=== PATIENT | female | born 1950 | race Caucasian/White ===

== ENCOUNTER 2021-09-02 21:08 | Emergency (ER) | payer MEDICAID, SELFPAY ==
[2021-09-02 21:18] VITALS: BP 131/93; PULSE 114; RESP 18; TEMP 37.1; O2SAT 97; BMI 24.7
--- NOTE | 2021-09-02 21:22 | XRR_ITS ---
PROCEDURE INFORMATION: Exam: XR Chest Exam date and time: 09/02/2021 9:28 PM Age: 70 years old Clinical indication: Other: Syncope; Additional info: Syncopal episode TECHNIQUE: Imaging protocol: Radiologic exam of the chest. Views: 1 view. COMPARISON: No relevant prior studies available. FINDINGS: Lungs: Minor scarring at the peripheral left lung base. No consolidation. Pleural spaces: No pleural effusion. No pneumothorax. Heart/Mediastinum: No cardiomegaly. Bones/joints: Visualized osseous structures are intact. XR/XR chest 1V portable [id number] IMPRESSION: No acute findings.
--- NOTE | 2021-09-02 21:22 | CTR_ITS ---
PROCEDURE INFORMATION: Exam: CT Head Without Contrast Exam date and time: 09/02/2021 9:51 PM Age: 70 years old Clinical indication: Syncope and collapse; Patient HX: Syncopal episode this evening. C/O bilateral leg weakness. TECHNIQUE: Imaging protocol: Computed tomography of the head without contrast. Radiation optimization: All CT scans at this facility use at least one of these dose optimization techniques: automated exposure control; mA and/or kV adjustment per patient size (includes targeted exams where dose is matched to clinical indication); or iterative reconstruction. COMPARISON: No relevant prior studies available. RADIATION DOSE METRICS: Total DLP (mGy-cm): 1351.38 FINDINGS: Brain: No hemorrhage. Mild diffuse cerebral atrophy. Moderate periventricular and deep white matter lesions most suggestive of chronic small vessel ischemic disease. Old punctate lacunar infarcts in the left caudate head. No mass effect. Cerebral ventricles: No ventriculomegaly. Paranasal sinuses: Visualized sinuses are unremarkable. No fluid levels. Mastoid air cells: Visualized mastoid air cells are well aerated. Bones/joints: Unremarkable. No acute fracture. Soft tissues: Unremarkable. CT/CT head wo con* [id number] IMPRESSION: 1. No acute intracranial abnormality. 2. Mild diffuse cerebral atrophy and moderate periventricular/deep white matter disease most suggestive of chronic small vessel ischemic disease. Old lacunar infarcts noted in the left caudate head.
--- NOTE | 2021-09-02 21:24 | ECG_ITS ---
[facility] Test Date: 2021-09-02 Pat Name: Leelee Maynard Department: Room: Gender: Female Desktop Support Associate: : 1950 Requested By: Case Shell Order Number: [id number] Acevedo MD: Kaylene Wetzel M.D. Measurements Intervals [place] Rate: 112 P: 22 [place]: 169 QRS: 9 QRSD: 94 T: 24 QT: 336 QTc: 459 Interpretive Statements SINUS TACHYCARDIA INFERIOR MYOCARDIAL INFARCTION , PROBABLY OLD [40+ ms Q WAVE AND/OR ST/T ABNORMALITY IN II/aVF] No previous ECG available for comparison Electronically Signed On 09-02-2021 22:50:30 CDT by Kaylene Wetzel M.D. [id number]
--- NOTE | 2021-09-02 21:46 | ED_ITS ---
Documented by User: MARY Martinez 09/03/21 15:51 HPI - Syncope General: Chief Complaint: Syncope Stated Complaint: SYNCOPAL EPISODE Time Seen by Provider: 09/02/21 21:22 History of Present Illness: Patient is a 70-year-old female comes to the ED with syncopal episode. Patient has a history of hypertension and diabetes but stopped taking her previously prescribed antihypertensive med and metformin several months ago since she stopped going to [facility]. Episode occurred just prior to arrival. Patient was sitting at her kitchen table watching some YouTube videos and then woke up on the floor. She states that she had no preceding symptoms before syncopal episode and has been feeling fine and normal all day. She has no history of past syncopal episodes. She was down for unknown time. Her is present and he was the one who found her on the floor. They estimate patient could have been out for 5 to 15 minutes. found on the kitchen floor and she was unconscious. He states that it took her almost a good hour before she fully came to and was acting more normal. He denies seeing any seizure-like activity or movements while patient was down on the ground. Here in the ED patient says her only complaint bilateral achy leg pain. Denies headache, neck pain, chest pain, shortness of breath, abdominal pain, nausea/vomiting, bladder or bowel symptoms. Associated symptoms: Deny abdominal pain, chest pain, fever(s), headache(s) or nausea Review of Systems Const: Denies: fever(s), chills or fatigue Eyes: Denies: change in vision or eye discomfort ENMT: Denies: throat pain, odynophagia, nasal discharge or nasal congestion Card: Reports: syncope; Denies: chest pain, palpitations, edema, swelling of feet/ankles, dyspnea on exertion or orthopnea Resp: Denies: dyspnea, productive cough or non-productive cough GI: Denies: abdominal pain, nausea, vomiting, diarrhea, constipation or hematochezia : Denies: flank pain, dysuria or hematuria Musc: Denies: neck pain, back pain or extremity swelling Skin/Breast: Denies: rash or new lesions Neuro: Denies: headache(s), numbness in extremities or weakness in extremities PFS ED PFSH: Medical History Diabetes Hypertension Surgical History No pertinent past surgical history Physical Exam Const: COMMON NORMALS: patient oriented x3 and alert GENERAL APPEARANCE: cooperative and comfortable HENMT: COMMON NORMALS: normocephalic HEAD & SCALP: normocephalic MOUTH: Normal oral and palatal mucosa present THROAT: posterior oropharynx normal and uvula midline Eye: COMMON NORMALS: Equal, round and reactive pupils present, EOMs intact bilaterally and conjunctivae normal CONJUNCTIVA: Yes conjunctivae normal PUPIL: Yes Equal, round and reactive pupils present Neck/C-Spine: COMMON NORMALS: supple GENERAL: Yes normal visual inspection Resp: COMMON NORMALS: normal respiratory effort, No retractions, No use of accessory muscles and clear to auscultation bilaterally AUSCULTATION: clear to auscultation bilaterally Cardio: COMMON NORMALS: regular rate, regular rhythm, S1 normal heart sound present, S2 normal heart sound present, No gallops present (Cardio), No clicks present (Cardio), No murmurs present (Cardio) and Peripheral pulses 2+ throughout RATE: regular rate RHYTHM: regular rhythm HEART SOUNDS: S1 normal heart sound present and S2 normal heart sound present PERIPHERAL PULSES: Peripheral pulses 2+ throughout GI: COMMON NORMALS: Normal to inspection, nondistended, normoactive bowel sounds present, Soft to palpation, non-tender and no masses PALPATION: Yes Soft to palpation : COMMON NORMALS: Yes no CVA tenderness BLADDER/KIDNEY EXAM: Yes no CVA tenderness Back/Pelvis: COMMON NORMALS: no CVA tenderness Extremity: COMMON NORMALS: normal to inspection Neuro: COMMON NORMALS: patient oriented x3, CN's II-XII intact bilaterally, moves all extremities, no focal motor deficits and no sensory deficits noted SENSORIUM/ORIENTATION: Yes alert COORDINATION/BALANCE: [id number] test normal and urhw-by-kpmj test normal SPEECH: speech normal MOTOR EXAM: 5/5 motor strength present throughout COORDINATION: [id number]-qj-airf test normal and vmff-rv-pzwy test normal Skin: GENERAL SKIN EXAM: dry skin Course Vital Signs: Vital signs: Vital Signs Temperature 98.8 F 09/02/21 22:03 Pulse Rate 94 09/03/21 00:05 Respiratory Rate 18 09/02/21 22:03 Blood Pressure 143/81 09/03/21 00:05 Pulse Oximetry 97 09/02/21 22:03 MDM - Syncope Lab Data I reviewed the patient's lab results. : 09/02/21 21:50 09/02/21 21:50 Radiology Impressions Chest X-Ray 09/02/21 21:22 IMPRESSION: No acute findings. Head CT 09/02/21 21:22 IMPRESSION: 1. No acute intracranial abnormality. 2. Mild diffuse cerebral atrophy and moderate periventricular/deep white matter disease most suggestive of chronic small vessel ischemic disease. Old lacunar infarcts noted in the left caudate head. Laboratory Results WBC 14.0 10^3/uL (4.0-10.0) H 09/02/21 21:50 RBC 4.70 10^6/uL (4.1-5.3) 09/02/21 21:50 Hgb 14.5 g/dL (11.5-15.3) 09/02/21 21:50 Hct 40.2 % (37.0-47.0) 09/02/21 21:50 MCV 85.5 fl (81-99) 09/02/21 21:50 MCH 30.9 pg (28.0-34.0) 09/02/21 21:50 MCHC 36.1 g/dL (30.0-36.0) H 09/02/21 21:50 RDW 12.6 % (12.1-15.1) 09/02/21 21:50 Plt Count 282 10^3/cmm (130-400) 09/02/21 21:50 MPV 9.3 fL (7.4-10.4) 09/02/21 21:50 Neut % (Auto) 84.0 % 09/02/21 21:50 Lymph % (Auto) 9.4 % 09/02/21 21:50 [place] % (Auto) 5.6 % 09/02/21 21:50 Eos % (Auto) 0.1 % 09/02/21 21:50 Baso % (Auto) 0.4 % 09/02/21 21:50 Neut # (Auto) 11.79 10^3/uL (1.8-7.7) H 09/02/21 21:50 Lymph # (Auto) 1.3 10^3/uL (0.8-4.8) 09/02/21 21:50 [place] # (Auto) 0.8 10^3/uL (0.2-0.9) 09/02/21 21:50 Eos # (Auto) 0.0 10^3/uL (0.0-0.8) 09/02/21 21:50 Baso # (Auto) 0.1 10^3/uL (0.0-0.1) 09/02/21 21:50 Nucleated RBC % (auto) 0 % 09/02/21 21:50 Nucleated RBCs # 0.0 /100WBC 09/02/21 21:50 Sodium 127 mmol/L (136-145) L 09/02/21 21:50 Potassium 3.8 mmol/L (3.5-5.1) 09/02/21 21:50 Chloride 92 mmol/L (98-107) L 09/02/21 21:50 Carbon Dioxide 18 mmol/L (22-29) L 09/02/21 21:50 Anion Gap 20.8 (5-19) H 09/02/21 21:50 BUN 9 mg/dL (8-23) 09/02/21 21:50 Creatinine 0.6 mg/dL (0.5-0.9) 09/02/21 21:50 GFR Calculation 99.4 mL/min (90-130) 09/02/21 21:50 Glucose 208 mg/dL (65-115) H 09/02/21 21:50 Calculated Osmolality 269 mOsm/kg (285-295) L 09/02/21 21:50 Calcium 8.6 mg/dL (8.5-10.5) 09/02/21 21:50 Total Bilirubin 0.5 mg/dL (0.15-1.2) 09/02/21 21:50 AST 30 U/L (0-32) 09/02/21 21:50 ALT 27 U/L (0-33) 09/02/21 21:50 Alkaline Phosphatase 87 IU/L (35-105) 09/02/21 21:50 Troponin T Baseline 24 ng/L (0-10) H 09/02/21 21:50 Troponin T 120 Minute 28.87 ng/L (0-10) H 09/03/21 00:05 Delta Troponin T 4.87 ABS# (0-10) 09/03/21 00:05 Troponin T Hi Sens 6Hr 22.99 ng/L (0-10) H 09/03/21 05:05 Troponin T Hi Sens 6Hr Delta -1.01 ng/L (0-12) L 09/03/21 05:05 Total Protein 8.0 g/dL (6.6-8.7) 09/02/21 21:50 Albumin 4.2 g/dL (3.5-5.2) 09/02/21 21:50 Globulin 3.8 g/dL (1.3-4.6) 09/02/21 21:50 Urine Color Yellow (Yellow) 09/02/21 22:04 Urine Appearance Clear (CLEAR) 09/02/21 22:04 Urine pH 6 (5-7) 09/02/21 22:04 Ur Specific [place] 1.020 (1.005-1.030) 09/02/21 22:04 Urine Protein Neg (Negative) 09/02/21 22:04 Urine Glucose (UA) Trace (Normal) H 09/02/21 22:04 Urine Ketones Negative (Negative) 09/02/21 22:04 Urine Blood Neg (Negative) 09/02/21 22:04 Urine Nitrate Negative (Negative) 09/02/21 22:04 Urine Bilirubin Neg (Negative) 09/02/21 22:04 Urine Urobilinogen Norm mg/dL (Negative) 09/02/21 22:04 Ur Leukocyte Esterase Negative (Negative) 09/02/21 22:04 Discharge Plan Discharge Patient Disposition: Home Clinical Impression: Syncope Condition: Stable Discharge Orders: Discharge ED (Routine); Ordered 09/03/21 Ordered By: Asa Nascimento Discharge Diet: Advance as tolerated Discharge Activity: Limit activity as instructed Activity Restrictions/Additional Instructions: Contact your doctor on Sunday to let them know that you were seen here after an episode of syncope or passing out. They may wish to perform more tests on you as an outpatient. Return for repeated episodes of syncope or passing out, development of chest discomfort, confusion, shortness of breath, other concerning symptoms. Coding Level of Care Code ED Fund Accounting Manager for Chg Fwd Exam Comprehensive Documented by User: Asa Nascimento DO 09/03/21 05:46 HPI - Syncope General: Chief Complaint: Syncope Stated Complaint: SYNCOPAL EPISODE Time Seen by Provider: 09/02/21 21:22 [facility] ED PFSH: Medical History Diabetes Hypertension Surgical History No pertinent past surgical history Course Vital Signs: Vital signs: Vital Signs Temperature 98.8 F 09/02/21 22:03 Pulse Rate 94 09/03/21 00:05 Respiratory Rate 18 09/02/21 22:03 Blood Pressure 143/81 09/03/21 00:05 Pulse Oximetry 97 09/02/21 22:03 MDM - Syncope Medical Decision Making This patient was originally seen by Mr. Suleman PA-C.? I agree with his history, evaluation, and treatment. This patient had an unexplained syncopal episode at home. Her rhythm has been stable on the monitor here. Her white blood cell count is mildly elevated at 14. Her bicarbonate level is 18. She received some fluid here. Her EKGs show sinus rhythm with no acute ST changes. First troponin was 22, and did not change significantly at 2 or 6 hours. Chest x-ray reveals nothing acute. There is no acute change on head CT either. With her stable status over essentially 8.5 hours in the ER, lack of arrhythmia, benign labs she will be allowed home. Lab Data : 09/02/21 21:50 09/02/21 21:50 Radiology Impressions Chest X-Ray 09/02/21 21:22 IMPRESSION: No acute findings. Head CT 09/02/21 21:22 IMPRESSION: 1. No acute intracranial abnormality. 2. Mild diffuse cerebral atrophy and moderate periventricular/deep white matter disease most suggestive of chronic small vessel ischemic disease. Old lacunar infarcts noted in the left caudate head. Laboratory Results WBC 14.0 10^3/uL (4.0-10.0) H 09/02/21 21:50 RBC 4.70 10^6/uL (4.1-5.3) 09/02/21 21:50 Hgb 14.5 g/dL (11.5-15.3) 09/02/21 21:50 Hct 40.2 % (37.0-47.0) 09/02/21 21:50 MCV 85.5 fl (81-99) 09/02/21 21:50 MCH 30.9 pg (28.0-34.0) 09/02/21 21:50 MCHC 36.1 g/dL (30.0-36.0) H 09/02/21 21:50 RDW 12.6 % (12.1-15.1) 09/02/21 21:50 Plt Count 282 10^3/cmm (130-400) 09/02/21 21:50 MPV 9.3 fL (7.4-10.4) 09/02/21 21:50 Neut % (Auto) 84.0 % 09/02/21 21:50 Lymph % (Auto) 9.4 % 09/02/21 21:50 Pickett % (Auto) 5.6 % 09/02/21 21:50 Eos % (Auto) 0.1 % 09/02/21 21:50 Baso % (Auto) 0.4 % 09/02/21 21:50 Neut # (Auto) 11.79 10^3/uL (1.8-7.7) H 09/02/21 21:50 Lymph # (Auto) 1.3 10^3/uL (0.8-4.8) 09/02/21 21:50 [place] # (Auto) 0.8 10^3/uL (0.2-0.9) 09/02/21 21:50 Eos # (Auto) 0.0 10^3/uL (0.0-0.8) 09/02/21 21:50 Baso # (Auto) 0.1 10^3/uL (0.0-0.1) 09/02/21 21:50 Nucleated RBC % (auto) 0 % 09/02/21 21:50 Nucleated RBCs # 0.0 /100WBC 09/02/21 21:50 Sodium 127 mmol/L (136-145) L 09/02/21 21:50 Potassium 3.8 mmol/L (3.5-5.1) 09/02/21 21:50 Chloride 92 mmol/L (98-107) L 09/02/21 21:50 Carbon Dioxide 18 mmol/L (22-29) L 09/02/21 21:50 Anion Gap 20.8 (5-19) H 09/02/21 21:50 BUN 9 mg/dL (8-23) 09/02/21 21:50 Creatinine 0.6 mg/dL (0.5-0.9) 09/02/21 21:50 GFR Calculation 99.4 mL/min (90-130) 09/02/21 21:50 Glucose 208 mg/dL (65-115) H 09/02/21 21:50 Calculated Osmolality 269 mOsm/kg (285-295) L 09/02/21 21:50 Calcium 8.6 mg/dL (8.5-10.5) 09/02/21 21:50 Total Bilirubin 0.5 mg/dL (0.15-1.2) 09/02/21 21:50 AST 30 U/L (0-32) 09/02/21 21:50 ALT 27 U/L (0-33) 09/02/21 21:50 Alkaline Phosphatase 87 IU/L (35-105) 09/02/21 21:50 Troponin T Baseline 24 ng/L (0-10) H 09/02/21 21:50 Troponin T 120 Minute 28.87 ng/L (0-10) H 09/03/21 00:05 Delta Troponin T 4.87 ABS# (0-10) 09/03/21 00:05 Troponin T Hi Sens 6Hr 22.99 ng/L (0-10) H 09/03/21 05:05 Troponin T Hi Sens 6Hr Delta -1.01 ng/L (0-12) L 09/03/21 05:05 Total Protein 8.0 g/dL (6.6-8.7) 09/02/21 21:50 Albumin 4.2 g/dL (3.5-5.2) 09/02/21 21:50 Globulin 3.8 g/dL (1.3-4.6) 09/02/21 21:50 Urine Color Yellow (Yellow) 09/02/21 22:04 Urine Appearance Clear (CLEAR) 09/02/21 22:04 Urine pH 6 (5-7) 09/02/21 22:04 Ur Specific [place] 1.020 (1.005-1.030) 09/02/21 22:04 Urine Protein Neg (Negative) 09/02/21 22:04 Urine Glucose (UA) Trace (Normal) H 09/02/21 22:04 Urine Ketones Negative (Negative) 09/02/21 22:04 Urine Blood Neg (Negative) 09/02/21 22:04 Urine Nitrate Negative (Negative) 09/02/21 22:04 Urine Bilirubin Neg (Negative) 09/02/21 22:04 Urine Urobilinogen Norm mg/dL (Negative) 09/02/21 22:04 Ur Leukocyte Esterase Negative (Negative) 09/02/21 22:04 Discharge Plan Discharge Patient Disposition: Home Clinical Impression: Syncope Condition: Stable Discharge Orders: Discharge ED (Routine); Ordered 09/03/21 Ordered By: Asa Nascimento Discharge Diet: Advance as tolerated Discharge Activity: Limit activity as instructed Activity Restrictions/Additional Instructions: Contact your doctor on Sunday to let them know that you were seen here after an episode of syncope or passing out. They may wish to perform more tests on you as an outpatient. Return for repeated episodes of syncope or passing out, development of chest discomfort, confusion, shortness of breath, other concerning symptoms. Coding Level of Care Code ED Fund Accounting Manager for Yanelis Fwd Exam Comprehensive
[2021-09-02 21:57] LABS: Basophils # 0.1 10^3/uL (0.0-0.1); Basophils % 0.4 %; Eosinophils % 0.1 %; Hematocrit 40.2 % (37.0-47.0); Hemoglobin 14.5 g/dL (11.5-15.3); Lymphocytes # 1.3 10^3/uL (0.8-4.8); Lymphocytes % 9.4 %; Mean Corpuscular HGB Conc 36.1 g/dL (30.0-36.0); Mean Corpuscular Hemoglobin 30.9 pg (28.0-34.0); Mean Corpuscular Volume 85.5 fl (81-99); Mean Platelet Volume 9.3 fL (7.4-10.4); Monocytes # 0.8 10^3/uL (0.2-0.9); Monocytes % 5.6 %; Neutrophils # 11.79 10^3/uL (1.8-7.7); Nucleated Red Blood Cells % 0 %; Platelet Count 282 10^3/cmm (130-400); Red Cell Distribution Width 12.6 % (12.1-15.1)
[2021-09-02 22:03] VITALS: BP 131/93; PULSE 114; RESP 18; TEMP 37.1; O2SAT 97
[2021-09-02 22:12] LABS: Add Urine Microscopic? NO; Charge for UA Resulting for Rev
[2021-09-02 22:17] LABS: Albumin Level 4.2 g/dL (3.5-5.2); Alkaline Phosphatase 87 IU/L (35-105); Blood Urea Nitrogen 9 mg/dL (8-23); Calcium 8.6 mg/dL (8.5-10.5); Carbon Dioxide 18 mmol/L (22-29); Chloride 92 mmol/L (98-107); Globulin 3.8 g/dL (1.3-4.6); Glomerular Filtration Rate 99.4 mL/min (90-130); Glucose 208 mg/dL (65-115); Osmolality Calculated 269 mOsm/kg (285-295); Sodium 127 mmol/L (136-145); Total Bilirubin 0.5 mg/dL (0.15-1.2); Troponin(5th) Baseline 24 ng/L (0-10)
[2021-09-02 22:21] LABS: Alanine Aminotransferase 27 U/L (0-33); Anion Gap 20.8 (5-19); Aspartate Amino Transferase 30 U/L (0-32); Potassium 3.8 mmol/L (3.5-5.1)
[2021-09-02 22:23] LABS: Urine Appearance Clear (CLEAR); Urine Color Yellow (Yellow)
[2021-09-02 22:24] LABS: Bilirubin Urine Neg (Negative); Blood Urine Neg (Negative); Glucose Urine UA Trace (Normal); Ketones Urine Negative (Negative); Leukocyte Esterase Urine Negative (Negative); Nitrate Urine Negative (Negative); Protein Urine Neg (Negative); Urobilinogen Urine Norm (Negative); pH Urine 6 (5-7)
[2021-09-02 22:27] LABS: Slide Review Slide Review Perform
[2021-09-02] MEDS: sodium chloride 0.9% 500 ML 999 ML IV (23:16)
--- NOTE | 2021-09-02 23:24 | ECG_ITS ---
[facility] Test Date: 2021-09-02 Pat Name: Leelee Maynard Department: Room: Gender: Female Nuclear Cardiology Technologist: : 1950 Requested By: Case Shell Order Number: [id number] Acevedo MD: Marck Hussein M.D. Measurements Intervals [place] Rate: 96 P: 37 [place]: 178 QRS: 8 QRSD: 94 T: 45 QT: 365 QTc: 463 Interpretive Statements SINUS RHYTHM MINIMAL ST DEPRESSION [0.025+ mV ST DEPRESSION] Compared to ECG 09/02/2021 21:56:18 ST (T wave) deviation now present Sinus tachycardia no longer present Myocardial infarct finding no longer present Electronically Signed On 09-04-2021 13:29:51 CDT by Marck Hussein M.D. [id number]
[2021-09-03 00:05] VITALS: BP 132/88; BP 134/94; BP 143/81; PULSE 107; PULSE 94; PULSE 99
[2021-09-03 00:28] LABS: Troponin 5 2HR 28.87 ng/L (0-10)
[2021-09-03 00:29] LABS: Troponin 5 2HR Delta 4.87 ABS# (0-10)
[2021-09-03 05:36] LABS: Troponin 5 6HR 22.99 ng/L (0-10)
[2021-09-03 05:39] LABS: Troponin 5 6HR Delta -1.01 ng/L (0-12)
== END 2021-09-03 06:37 | disposition home or self-care (01) ==
PROVIDERS: Physician Assistant; Emergency Provider Emergency Medicine
DX: R55 Syncope and collapse (principal); E11.9 Type 2 diabetes mellitus without complications; I10 Essential (primary) hypertension
CPT/HCPCS: 36415; 70450; 71045; 80053; 81003; 84484; 85025; 93005; 96360; 99284; J7040

== ENCOUNTER → 2021-09-07 17:17 | Outpatient (BNVA) | payer MEDICAID, SELFPAY | PROVIDERS: PCP Nurse Practitioner Family; Visit Provider Nurse Practitioner Family | DX: I25.10 Atherosclerotic heart disease of native coronary artery without angina pectoris (principal); I10 Essential (primary) hypertension; E11.9 Type 2 diabetes mellitus without complications; R55 Syncope and collapse; G45.9 Transient cerebral ischemic attack, unspecified; F41.9 Anxiety disorder, unspecified; F32.A Depression, unspecified | CPT/HCPCS: 80053; 80061; 83036; 83090; 84443 ==

== ENCOUNTER 2021-12-21 12:25 | Outpatient (CLI) | payer MEDICAID, SELFPAY ==
--- NOTE | 2021-12-21 12:45 | USCV_ITS ---
Karen Maynard Age: 71 Gender: F : 1950 Exam Date: 12/21/2021 12:52 Ordering Phys: Pretty Lynne NP Technologist: EKATERINA [place] [facility] [place]: Syncope. Hx of CAD and TIA Risk Factors: Previous Vascular Surgery: Right Brachial BP: / Left Brachial BP: / Right Left Velocity (cm/s) Spectral Plaque Velocity (cm/s) Spectral Plaque Syst/Diast Broadening Syst/Diast Broadening 59.80/ 15.50 Prox CCA 59.20 / 13.90 67.60/ 18.60 Mid CCA 57.90 / 13.20 76.10/ 19.40 Distal CCA 80.80 / 21.80 66.00/ 18.60 Prox ICA 70.70 / 19.40 87.00/ 31.10 Mid ICA 76.90 / 25.60 71.40/ 28.00 Distal ICA 100.00/ 35.00 69.10 ECA 89.30 1.14 ICA/CCA 1.24 Vertebral 44.00/ 8.50 cm/s 35.20/ 15.00 cm/s Subclavian 56.80 100.0 0 FINDINGS Comparison: none available. No significant elevation of systolic or diastolic velocities. Waveforms are normal. No significant amount of calcified plaque or intimal thickening identified. CONCLUSIONS Normal carotid doppler ultrasound. Dr. Thi Morrissey DO (Electronically Signed) Final Date: 21 December 2021 14:02 S
--- NOTE | 2021-12-21 13:30 | USCV_ITS ---
Karen Maynard Age: 71 Gender: F : 1950 Exam Date: 12/21/2021 13:24 Ordering Phys: Pretty Lynne NP Technologist: LYNN [place] [facility] [place]: SYNCOPE/TIA BP: 126 / 74 HR: 74 Rhythm: Sinus Technical Quality: Adequate MEASUREMENTS (Male / Female) Normal Values 2D ECHO LVOT Diameter 2.0 cm LV Ejection Fraction MOD 2C 60.3 % LV Ejection Fraction 2C AL 59.7 % LA Diameter 3.3 cm LA Width 3.5 cm LA Height 4.7 cm RA Width 3.4 cm RA Height 4.2 cm Aorta at Sinotubular Diameter 1.7 cm IVC Diameter 1.8 cm M-MODE Aortic Annulus Diameter 3.0 cm LA Ao Ratio MM 1.1 MV E Point Septal Separation 0.4 cm DOPPLER AV Peak Velocity 197.0 cm/s LVOT Peak Velocity 96.0 cm/s AV Area Cont Eq vti 1.7 cm squared AV Area Cont Eq pk 1.6 cm squared MV Peak Velocity 104.0 cm/s MV Area PHT 3.5 cm squared Mitral E to A Ratio 0.8 MV E' Velocity 43.0 cm/s Mitral E to MV E' Ratio 11.1 Mitral E to LV E' Lateral Ratio 9.8 Mitral E to LV E' Septal Ratio 12.9 TR Peak Velocity 190.5 cm/s TR Peak Gradient 14.5 mmHg TR Mean Velocity 166.9 cm/s TR Mean Gradient 12.0 mmHg TR Velocity Time Integral 70.2 cm TV Peak E Velocity 54.0 cm/s Right Atrial Pressure 3.0 mmHg Pulmonary Artery Systolic Pressu 17.5 mmHg PV Peak Velocity 115.0 cm/s RV Acceleration Time 0.1 s RV Ejection Time 0.3 s RV AcT/ET 0.3 FINDINGS Left Ventricle Normal left ventricular cavity size. Normal left ventricular systolic function. Left ventricular ejection fraction is estimated at 65 %. No regional wall motion abnormalities. Normal diastolic function. Right Ventricle Normal right ventricular size and systolic function. Right ventricular systolic pressure 17.5 mmHg. Right Atrium Normal right atrial size. Left Atrium Normal left atrial size. Mitral Valve Mild mitral annular calcification. Mildly thickened mitral valve. No mitral valve stenosis. Trace mitral valve regurgitation. Aortic Valve Aortic valve not well visualized. No aortic valve stenosis. Trace aortic valve regurgitation. Tricuspid Valve Structurally normal tricuspid valve. No tricuspid valve stenosis. Trace tricuspid valve regurgitation. Pulmonic Valve Pulmonic valve not well visualized. No pulmonary valve stenosis. No significant pulmonary valve regurgitation. Pericardium No pericardial effusion. Aorta Normal-sized aortic root. IVC Normal IVC dimension with >50% respiratory change of the inferior vena cava. CONCLUSIONS 1. Normal left ventricular cavity size and systolic function. Left ventricular ejection fraction is estimated at 65 %. No regional wall motion abnormalities. Normal diastolic function. 2. Normal right ventricular size and systolic function. 3. Trace aortic valve regurgitation. 4. Normal pulmonary artery pressure. 5. No prior similar studies to compare. Kaylene Wetzel MD (Electronically Signed) Final Date: 26 December 2021 09:16 S
== END 2021-12-21 12:26 | disposition home or self-care (01) ==
LOC: RAD 12:26
PROVIDERS: PCP Nurse Practitioner Family; Visit Provider Nurse Practitioner Family
DX: R55 Syncope and collapse (principal); E11.9 Type 2 diabetes mellitus without complications; I10 Essential (primary) hypertension; Z86.73 Personal history of transient ischemic attack (TIA), and cerebral infarction without residual deficits
CPT/HCPCS: 93306; 93880

== ENCOUNTER → 2021-12-23 13:03 | Outpatient (BNVA) | payer MEDICAID, SELFPAY | PROVIDERS: PCP Nurse Practitioner Family; Visit Provider Nurse Practitioner Family | DX: I10 Essential (primary) hypertension (principal); E11.9 Type 2 diabetes mellitus without complications; E78.1 Pure hyperglyceridemia; F32.A Depression, unspecified; F41.9 Anxiety disorder, unspecified; M19.90 Unspecified osteoarthritis, unspecified site; Z78.0 Asymptomatic menopausal state; Z12.31 Encounter for screening mammogram for malignant neoplasm of breast; Z13.820 Encounter for screening for osteoporosis; Z12.11 Encounter for screening for malignant neoplasm of colon; Z12.2 Encounter for screening for malignant neoplasm of respiratory organs; F17.200 Nicotine dependence, unspecified, uncomplicated | CPT/HCPCS: 80053; 80061; 82306; 83036; 85025 ==

== ENCOUNTER 2022-02-06 12:10 | Outpatient (CLI) | payer MEDICAID, SELFPAY ==
--- NOTE | 2022-02-06 12:56 | MM_ITS ---
WS: [id number] BILATERAL 3D TOMOSYNTHESIS DIGITAL SCREENING MAMMOGRAPHY WITH CAD CLINICAL INFORMATION: screening HISTORY: Screening mammogram. No current complaints. COMPARISON: None. TECHNIQUE: Bilateral CC and MLO views. FINDINGS: Scattered fibroglandular densities bilaterally. No suspicious focal mass, asymmetry, calcifications, or architectural distortion. No evidence of malignancy. Incidental lucent centered calcification LEFT breast. MM/[place] [id number] IMPRESSION: BI-RADS: 2-Benign FOLLOW UP: 1 Year Follow-up Recommend return to annual screening mammography.
--- NOTE | 2022-02-06 13:00 | XR_ITS ---
WS: [id number] SCREENING DEXA SCAN Sensorion CLINICAL INFORMATION: screening COMPARISON: None. FINDINGS: The L1-L4 bone mineral density measures 1.099 g/cm2. This corresponds to a T score score of -0.7 and Z score of 0.9. Left femoral neck bone mineral density measures 0.683 g/cm2. This corresponds to a T score of -2.6 an d Z score of -1.2. Right femoral neck bone mineral density measures 0.673 g/cm2. This corresponds to a T score -2.7of an d Z score of -1.3. Mean femoral neck bone mineral density measures 0.678 g/cm2. This corresponds to a T score of -2.6 an d Z score of -1.2. XR/XR DEXA axial skeleton* [id number] IMPRESSION: Normal bone mineralization lumbar spine. Osteoporosis Femoral necks. Patient's FRAX calculated 10 year probability for major osteoporotic fracture i s 18.0 % and osteoporotic hip fracture is 7.4%.
--- NOTE | 2022-02-06 14:30 | CT_ITS ---
WS: [email or web address] LDCT LUNG CANCER SCREENING TECHNIQUE: Noncontrast CT of the chest with coronal and sagittal reformatted images. CLINICAL INFORMATION: screening COMPARISON: None. DLP: 66.22 mGy.cm DIvol: Mean CTDIvol: 1.60 (mGy) All CT scans at [facility] use at least one of these dose optimization techniques: automat ed exposure control; mA and/or kV adjustment per patient size (includes targeted exams where dose is matched to clinical indication); or iterative reconstruction. FINDINGS: Aortic calcification. Coronary calcification. No mediastinal or hilar lymphadenopathy. Adrenal glands are normal. Normal GE junction. No mediastinal or hilar lymphadenopathy. No axillary lymphadenopathy . Subsegmental atelectasis in lung bases. Noncalcified pulmonary nodule LEFT upper lobe near the lung apex measuring 6.7 mm. Additional noncalcified nodule LEFT upper lobe measuring 3.5 mm. Calcified gra nuloma LEFT lower lobe. CT/CT lung screening [id number] IMPRESSION: Noncalcified nodule LEFT lung apex measuring 6.7 mm. Recommend 3 mo nth follow-up chest CT screening. LUNG-RADS: 4A-Probably Suspicious FOLLOW UP: 3 Month LDCT
== END 2022-02-06 12:11 | disposition home or self-care (01) ==
LOC: RAD 12:12
PROVIDERS: PCP Nurse Practitioner Family; Visit Provider Nurse Practitioner Family
DX: Z12.31 Encounter for screening mammogram for malignant neoplasm of breast (principal); Z13.820 Encounter for screening for osteoporosis; Z12.2 Encounter for screening for malignant neoplasm of respiratory organs; M81.0 Age-related osteoporosis without current pathological fracture
CPT/HCPCS: 71271; 77063; 77067; 77080

== ENCOUNTER → 2022-03-30 09:11 | Outpatient (BNVA) | payer MEDICAID, SELFPAY | PROVIDERS: PCP Nurse Practitioner Family; Visit Provider Nurse Practitioner Family | DX: E78.1 Pure hyperglyceridemia (principal); E11.9 Type 2 diabetes mellitus without complications; F32.A Depression, unspecified; F41.9 Anxiety disorder, unspecified; I10 Essential (primary) hypertension | CPT/HCPCS: 80053; 80061; 83036; 85025 ==

== ENCOUNTER 2022-05-10 06:04 | Outpatient (CLI) | payer MEDICARE, MEDICAID, SELFPAY ==
--- NOTE | 2022-05-10 06:30 | CT_ITS ---
WS: [id number] CT CHEST WITHOUT INTRAVENOUS CONTRAST HISTORY: 3 month follow-up lung screening 02/06/2022. TECHNIQUE: Contiguous 5 mm axial imaging performed on the thorax. Coronal and sagittal reformats are submitted. All CT scans at [facility] use at least one of these dose optimization techniques: automated exposure control; mA and/or kV adjustment per patient size (includes targeted exams where dose is matched to clinical indication); or iterative reconstruction. CONTRAST: None DLP: 347.54 mGy.cm COMPARISON: 01/29/2022 Lungs and central airway: Well aerated lungs with mild emphysema. Stable noncalcified 6 mm LEFT upper lobe pulmonary nodule. Noncalcified 3 mm nodule LEFT upper lobe is stable, image 19 of series 5. No new or enlarging pulmonary nodules. Pleura: Normal. No pleural effusion. Heart and pericardium: Mild cardiomegaly with no pericardial effusion. Mediastinum and gopi: No mediastinum or hilar adenopathy. Vessels: Moderate atherosclerosis aorta. Moderate calcification extends into the proximal great vesse ls. Heavy calcification at the origin of the LEFT subclavian artery. Moderate coronary artery calcifi cations. Greatest distribution of calcification in the LEFT anterior descending coronary. Chest wall and lower neck: No soft tissue masses. Upper abdomen: Dense calcification in the gallbladder. There may also be some sludge layering in a mi ldly contracted gallbladder. No adrenal mass. Moderate suprarenal aortic calcification. Osseous structures: Degenerative spondylitic changes in the spine. CT/CT chest wo con [id number] IMPRESSION: 1. No interval change 6 mm LEFT upper lobe pulmonary nodule since 01/29/2022. Recommend noncontrast [address] follow-up. 2. Atherosclerosis thoracic aorta and suprarenal aorta. 3. Heavy calcific burden involving the origin of the LEFT subclavian artery. S uspect component of stenosis. CT angiogram the LEFT subclavian artery may provi de additional information concerning extent of stenosis. 4. Cholelithiasis and sludge in the gallbladder. No evidence for acute cholecy stitis. Consider surgical evaluation. 5. Moderate coronary artery atherosclerosis.
== END 2022-05-10 06:05 | disposition home or self-care (01) ==
LOC: RAD 06:07
PROVIDERS: PCP Nurse Practitioner Family; Visit Provider Nurse Practitioner Family
DX: R91.1 Solitary pulmonary nodule (principal); K80.20 Calculus of gallbladder without cholecystitis without obstruction
CPT/HCPCS: 71250

== ENCOUNTER → 2022-05-15 13:20 | Outpatient (BNVA) | payer MEDICARE, MEDICAID, SELFPAY | PROVIDERS: PCP Nurse Practitioner Family; Visit Provider Internal Medicine Pulmonary Disease | DX: R91.1 Solitary pulmonary nodule (principal); J43.9 Emphysema, unspecified; F17.210 Nicotine dependence, cigarettes, uncomplicated; F41.9 Anxiety disorder, unspecified | CPT/HCPCS: 99204 ==

== ENCOUNTER 2022-06-13 09:08 | Outpatient (CLI) | payer MEDICARE, MEDICAID, SELFPAY ==
[2022-06-13 09:17] VITALS: BP 127/82
[2022-06-13 09:34] VITALS: PULSE 84; RESP 18; O2SAT 97
[2022-06-13] MEDS: albuterol 2.5 mg/3 mL Neb INHALATION (09:34)
[2022-06-13 09:40] VITALS: PULSE 88
== END 2022-06-13 09:09 | disposition home or self-care (01) ==
LOC: RT 09:12
PROVIDERS: PCP Nurse Practitioner Family; Visit Provider Internal Medicine Pulmonary Disease
DX: R91.1 Solitary pulmonary nodule (principal); F17.200 Nicotine dependence, unspecified, uncomplicated
CPT/HCPCS: 94060; 94618; 94729; J7613

== ENCOUNTER → 2022-07-25 08:21 | Outpatient (BNVA) | payer MEDICARE, MEDICAID, SELFPAY | PROVIDERS: PCP Nurse Practitioner Family; Visit Provider Nurse Practitioner Family | DX: E11.9 Type 2 diabetes mellitus without complications (principal); Z00.00 Encounter for general adult medical examination without abnormal findings; F32.A Depression, unspecified; F41.9 Anxiety disorder, unspecified | CPT/HCPCS: 80053; 80061; 83036; 84443 ==

== ENCOUNTER 2022-10-06 01:40 | Inpatient (IN) | payer MEDICARE, MEDICAID, SELFPAY ==
[2022-10-06] VITALS (43 sets, daily range): BP systolic 94–125; BP diastolic 40–79; PULSE 62–108; RESP 13–24; TEMP 36.2; O2SAT 90–99; BMI 25.8; BMI 22.4
--- NOTE | 2022-10-06 01:42 | ED_ITS ---
HPI - Syncope General: Chief Complaint: Neuro Symptoms/Deficit Stated Complaint: syncope Time Seen by Provider: 10/06/22 01:42 History of Present Illness: Ms. Hagan is a 71-year-old lady with history of hypertension, diabetes, prior stroke presented the emergency department for evaluation of strokelike symptoms. Patient reports that her right arm has been weaker over the past few days and today she fell to the ground and lost consciousness. She currently only reports neurologic symptom of right arm weakness. Denies other recent changes. Family confirms history of few days of noticing increased right upper extremity weakness. Apparently she went to get up to get a glass of water before going to bed and collapsed to the ground. She did not appear to lose consciousness however was unable to answer questions. No clear seizure like shaking though did feel like her arms were drawn up towards her wraps. No tongue biting or loss of consciousness. She has been feeling generally unwell for at least a few days. Onset (ago): day(s) Associated symptoms: Reports weakness Review of Systems General: Reports: 10 or more systems reviewed and unremarkable except in HPI and below PFSH ED PFSH: Medical History (Updated 10/13/22 @ 10:04 by Pretty Lynne NP) Advanced care planning/counseling discussion Anxiety Breast cancer screening by mammogram CAD in [place] artery Chronic UTI Colon cancer screening Current every day smoker Depression Diabetes Diarrhea Encounter for smoking cessation counseling Enteritis Hypertension Hypokalemia Hypomagnesemia Hyponatremia Hypophosphatemia OA (osteoarthritis) Osteoporosis screening Postmenopausal Pulmonary nodule 1 cm or greater in diameter Screening for lung cancer Stroke-like symptom Syncope Surgical History H/O: hysterectomy Family History Family/Other No significant medical problems Social History Smoking and tobacco status: current every day smoker cigarettes Packs smoked per day: 1 Years cigarettes smoked: 50 [ Other cigarette details: 1 ppd x 50 years] Physical Exam Const: COMMON NORMALS: alert GENERAL APPEARANCE: cooperative and well developed HENMT: COMMON NORMALS: normocephalic and atraumatic HEAD & SCALP: normocephalic and atraumatic Eye: COMMON NORMALS: conjunctivae normal CONJUNCTIVA: Yes conjunctivae normal SCLERA: sclerae normal Neck/C-Spine: COMMON NORMALS: supple GENERAL: Yes trachea midline Resp: COMMON NORMALS: clear to auscultation bilaterally EFFORT & IN SPECTION: Yes able to speak in complete sentences AUSCULTATION: clear to auscultation bilaterally Cardio: COMMON NORMALS: regular rhythm RATE: tachycardic RHYTHM: regular rhythm GI: COMMON NORMALS: Soft to palpation PALPATION: Yes Soft to palpation and No Tenderness to palpation present (GI) Extremity: GENERAL: Yes normal exam except as noted and No edema Neuro: COMMON NORMALS: moves all extremities SENSORIUM/ORIENTATION: Yes alert and No Orientation impaired Psych: COMMON NORMALS: mental status grossly normal and Normal thought process present THOUGHT PROCESS: Normal thought process present Course Vital Signs: Vital signs: Vital Signs Temperature 97.4 F L 10/08/22 12:39 Pulse Rate 76 10/08/22 12:39 Respiratory Rate 16 10/08/22 12:39 Blood Pressure 136/71 10/08/22 12:39 Pulse Oximetry 99 10/08/22 12:39 Oxygen Delivery Me thod Room Air 10/08/22 08:49 MDM - Syncope Medical Decision Making 71-year-old lady presenting with strokelike symptoms. Right upper extremity weakness appreciated on clinical exam. Due to onset of symptoms and low NIHSS patient is not a tPA candidate. Patient is nontoxic. EKG demonstrates sinus rhythm with left axis deviation and nonspecific ST seg ment abnormalities, no STEMI. Labs with no leukocytosis, present anemia, metabolic panel with hypokalemia and likely dehydration. CT head negative for acute pathology. Chest x-ray with no lobar consolidation or pneumothorax. Patient treated with magnesium and potassium replenishment as well as fluids. Exact etiology of symptoms is unclear though may be related to recrudescence secondary to electrolyte derangement. The results of ED evaluation were discussed with the patient including plan for admission due to requirement for level of care not available if discharged to prevent significant worsening/deterioration. Patient agreeable with plan. Discussed with hospitalist service who was agreeable to admit patient. Medical Records I reviewed the patient's medical records. Lab Data I reviewed the patient's lab results. 10/08/22 02:27 10/08/22 02:27 Radiology Impressions Chest X-Ray 10/06/22 01:42 IMPRESSION: No acute abnormality demonstrated. Head CT 10/06/22 01:44 IMPRESSION: Diffuse atrophy and chronic/remote ischemic changes without evidence of superimposed acute infarct, hemorrhage or mass-effect at this time. ASSESSMENT: ASPECTS ([place] Stroke Program Early CT Score) is 10. Chest/Abdomen/Pelvis CT 10/06/22 04:29 IMPRESSION: 1. Mild upper lung zone emphysema and minimal bibasilar atelectasis. 2. Stable left upper lobe apicoposterior segment 6.7 mm noncalcified pulmonary nodule and 3.5 mm anterior left upper lobe noncalcified nodule. Recommend follow-up noncontrast chest CT at 18-24 months from the initial scan 02/06/2022, in keeping with Fleischner recommendations. 3. Atherosclerotic vascular disease including coronary artery disease. IMPRESSION: 1. Diffuse ileus versus enterocolitis or diarrheal illness. 2. Cholelithiasis. 3. Previous hysterectomy. 4. Atherosclerotic vascular disease. Laboratory Results WBC 8.7 10^3/uL (4.0-10.0) 10/06/22 01:54 RBC 3.74 10^6/uL (4.1-5.3) L 10/06/22 01:54 Hgb 10.7 g/dL (11.5-15.3) L 10/06/22 01:54 Hct 30.2 % (37.0-47.0) L 10/06/22 01:54 MCV 80.7 fl (81-99) L 10/06/22 01:54 MCH 28.6 pg (28.0-34.0) 10/06/22 01:54 MCHC 35.4 g/dL (30.0-36.0) 10/06/22 01:54 RDW 15.8 % (12.1-15.1) H 10/06/22 01:54 Plt Count 198 10^3/cmm (130-400) 10/06/22 01:54 MPV 8.3 fL (7.4-10.4) 10/06/22 01:54 Neut % (Auto) 90.4 % 10/06/22 01:54 Lymph % (Auto) 4.0 % 10/06/22 01:54 Orange % (Auto) 4.8 % 10/06/22 01:54 Eos % (Auto) 0.0 % 10/06/22 01:54 Baso % (Auto) 0.1 % 10/06/22 01:54 Neut # (Auto) 7.89 10^3/uL (1.8-7.7) H 10/06/22 01:54 Lymph # (Auto) 0.4 10^3/uL (0.8-4.8) L 10/06/22 01:54 Orange # (Auto) 0.4 10^3/uL (0.2-0.9) 10/06/22 01:54 Eos # (Auto) 0.0 10^3/uL (0.0-0.8) 10/06/22 01:54 Baso # (Auto) 0.0 10^3/uL (0.0-0.1) 10/06/22 01:54 Nucleated RBC % (auto) 0 % 10/06/22 01:54 Nucleated RBCs # 0.0 /100WBC 10/06/22 01:54 PT 16.70 SECONDS (12.1-14.9) H 10/06/22 01:54 INR 1.31 (0.8-1.2) H 10/06/22 01:54 APTT 33.3 SECONDS (23.9-36.7) 10/06/22 01:54 Sodium 120 mmol/L (136-145) L 10/06/22 04:20 Potassium 2.5 mmol/L (3.5-5.1) L* 10/06/22 04:20 Chloride 88 mmol/L (98-107) L 10/06/22 04:20 Carbon Dioxide 17 mmol/L (22-29) L 10/06/22 04:20 Anion Gap 17.5 (5-19) 10/06/22 04:20 BUN 8 mg/dL (8-23) 10/06/22 04:20 Creatinine 0.4 mg/dL (0.5-0.9) L 10/06/22 04:20 GFR Calculation 158.3 mL/min (90-130) H 10/06/22 04:20 Glucose 169 mg/dL (65-115) H 10/06/22 04:20 Estimat Average Glucose 126 10/06/22 01:54 Hemoglobin A1c 6.0 % (4.0-6.0) 10/06/22 01:54 Calculated Osmolality 251 mOsm/kg (285-295) L 10/06/22 01:54 Lactic Acid 1.0 mmol/L (0.5-2.2) 10/06/22 01:54 Calcium 7.8 mg/dL (8.5-10.5) L 10/06/22 04:20 Phosphorus 1.8 mg/dL (2.5-4.5) L 10/06/22 04:20 Magnesium 1.5 mg/dL (1.7-2.3) L 10/06/22 01:54 Total Bilirubin 0.4 mg/dL (0.15-1.2) 10/06/22 01:54 AST 34 U/L (0-32) H 10/06/22 01:54 ALT 15 U/L (0-33) 10/06/22 01:54 Alkaline Phosphatase 51 U/L (35-105) 10/06/22 01:54 Troponin T Baseline 36 ng/L (0-10) H 10/06/22 01:54 Troponin T 120 Minute 27.21 ng/L (0-10) H 10/06/22 04:20 Delta Troponin T -8.79 ABS# (0-10) L 10/06/22 04:20 C-Reactive Protein 140.7 mg/L (0.0-4.9) H 10/06/22 01:54 NT-Pro-B Natriuret Pep 1539 pg/mL (0-125) H 10/06/22 01:54 Total Protein 5.2 g/dL (6.6-8.7) L 10/06/22 01:54 Albumin 2.9 g/dL (3.5-5.2) L 10/06/22 04:20 Globulin 2.2 g/dL (1.3-4.6) 10/06/22 01:54 Procalcitonin 17.93 ng/mL (0-0.5) H 10/06/22 01:54 Urine Color Yellow (Yellow) 10/06/22 04:06 Urine Appearance Sl hazy (CLEAR) A 10/06/22 04:06 Urine pH 6 (5-7) 10/06/22 04:06 Ur Specific [place] 1.020 (1.005-1.030) 10/06/22 04:06 Urine Protein Trace (Negative) 10/06/22 04:06 Urine Glucose (UA) Norm (Normal) 10/06/22 04:06 Urine Ketones 2+ (Negative) H 10/06/22 04:06 Urine Blood Trace (Negative) H 10/06/22 04:06 Urine Nitrate Negative (Negative) 10/06/22 04:06 Urine Bilirubin Neg (Negative) 10/06/22 04:06 Urine Urobilinogen Neg mg/dL (Negative) 10/06/22 04:06 Ur Leukocyte Esterase Negative (Negative) 10/06/22 04:06 Urine RBC 0-4 /hpf (0-2) H 10/06/22 04:06 Urine WBC None /hpf (0-5) 10/06/22 04:06 Ur Squamous Epith Cells 5-10 /hpf (0-5) H 10/06/22 04:06 Amorphous Sediment Not Reportable 10/06/22 04:06 Urine Bacteria 1+ /hpf (NONE) H 10/06/22 04:06 Urine Opiates Screen Negative ng/mL (Negative) 10/06/22 04:06 Ur Barbiturates Screen Negative ng/mL (Negative) 10/06/22 04:06 Ur Phencyclidine Scrn Negative ng/mL (Negative) 10/06/22 04:06 Ur Amphetamines Screen Negative ng/mL (Negative) 10/06/22 04:06 U Benzodiazepines Scrn Negative ng/mL (Negative) 10/06/22 04:06 Urine Cocaine Screen Negative ng/mL (Negative) 10/06/22 04:06 U Marijuana (THC) Screen Negative ng/mL (Negative) 10/06/22 04:06 Discharge Plan Discharge Patient Disposition: Admitted As Inpatient Admit Provider: Case Lynne Clinical Impression: Stroke-like symptom, Syncope, Hyponatremia, Hypokalemia, Hypomagnesemia Condition: Stable Coding Level of Care Code ED [employer] for Yanelis Rutledge
--- NOTE | 2022-10-06 01:42 | XRR_ITS ---
PROCEDURE INFORMATION: Exam: XR Chest Exam date and time: 10/06/2022 2:02 AM Age: 71 years old Clinical indication: Other: Syncope, RT sided weakness TECHNIQUE: Imaging protocol: Radiologic exam of the chest. Views: 1 view. COMPARISON: CT chest con [id number] 05/10/2022 6:32 AM FINDINGS: Tubes, catheters and devices: A couple monitor leads project over the chest. Lungs: No significant or acute findings. No consolidation. Pleural spaces: No significant costophrenic angle blunting. No pneumothorax. Heart/Mediastinum: Heart size is normal. Bones/joints: No acute osseous abnormality. XR/XR chest 1V portable [id number] IMPRESSION: No acute abnormality demonstrated.
--- NOTE | 2022-10-06 01:44 | CTR_ITS ---
PROCEDURE INFORMATION: Exam: CT Head Without Contrast Exam date and time: 10/06/2022 1:57 AM Age: 71 years old Clinical indication: Stroke-like symptoms; RT upper extremity weakness; Additional info: Syncope, possible stroke like symptoms TECHNIQUE: Imaging protocol: Computed tomography of the head without contrast. Radiation optimization: All CT scans at this facility use at least one of these dose optimization techniques: automated exposure control; mA and/or kV adjustment per patient size (includes targeted exams where dose is matched to clinical indication); or iterative reconstruction. Other technique: STROKE PROTOCOL was implemented. REPORTING DATA: Count of CT and Cardiac NM exams in prior 12 months: This patient has received 2 known CTs and 0 known cardiac nuclear medicine studies in the 12 months prior to the current study. COMPARISON: CT head wo con* [id number] 09/02/2021 9:51 PM RADIATION DOSE METRICS: Total DLP (mGy-cm): 1168.25 FINDINGS: Brain: Prominence of the sulci consistent with diffuse atrophy. No mass effect or midline shift. Periventricular and subcortical white matter low-attenuation consistent with chronic small vessel ischemic changes. Caudate head tiny remote lacunar infarcts left greater than right. No evidence of acute intracranial hemorrhage. Cerebral ventricles: Ventricular prominence proportional to sulci. No hydrocephalus. Paranasal sinuses: No significant or acute abnormality. No air-fluid levels. Mastoid air cells: No acute abnormality. No significant mastoid effusion. Bones/joints: No acute osseous abnormality. No acute fracture. Soft tissues: No significant soft tissue abnormalities. Vasculature: Atherosclerotic vascular calcification of the bilateral distal vertebral arteries and carotid siphons. CT/CT head wo con* [id number] IMPRESSION: Diffuse atrophy and chronic/remote ischemic changes without evidence of superimposed acute infarct, hemorrhage or mass-effect at this time. ASSESSMENT: ASPECTS ([place] Stroke Program Early CT Score) is 10.
--- NOTE | 2022-10-06 01:52 | ECG_ITS ---
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 Measurements Intervals [place] Rate: 101 P: 24 [place]: 184 QRS: -3 QRSD: 106 T: 11 QT: 358 QTc: 464 Interpretive Statements SINUS TACHYCARDIA INFERIOR MYOCARDIAL INFARCTION , PROBABLY OLD [40+ ms Q WAVE AND/OR ST/T ABNORMALITY IN II/aVF] Compared to ECG 09/02/2021 23:56:35 Myocardial infarct finding now present Sinus rhythm no longer present ST (T wave) deviation no longer present Electronically Signed On 10-06-2022 18:37:30 CDT by Isai Iniguez M.D. [id number]
[2022-10-06 02:02] LABS: Basophils % 0.1 %; Hematocrit 30.2 % (37.0-47.0); Hemoglobin 10.7 g/dL (11.5-15.3); Lymphocytes # 0.4 10^3/uL (0.8-4.8); Mean Corpuscular HGB Conc 35.4 g/dL (30.0-36.0); Mean Corpuscular Hemoglobin 28.6 pg (28.0-34.0); Mean Corpuscular Volume 80.7 fl (81-99); Mean Platelet Volume 8.3 fL (7.4-10.4); Monocytes # 0.4 10^3/uL (0.2-0.9); Monocytes % 4.8 %; Neutrophils # 7.89 10^3/uL (1.8-7.7); Neutrophils % 90.4 %; Nucleated Red Blood Cells % 0 %; Platelet Count 198 10^3/cmm (130-400); Red Blood Count 3.74 10^6/uL (4.1-5.3); Red Cell Distribution Width 15.8 % (12.1-15.1); White Blood Count 8.7 10^3/uL (4.0-10.0)
[2022-10-06 02:18] LABS: INR 1.31 (0.8-1.2)
[2022-10-06 02:19] LABS: Partial Thromboplastin Time 33.3 SECONDS (23.9-36.7)
[2022-10-06 02:23] LABS: Troponin(5th) Baseline 36 ng/L (0-10)
[2022-10-06 02:45] LABS: NT Pro B Type Natriuretic Pept 1539 pg/mL (0-125); Procalcitonin 17.93 ng/mL (0-0.5)
[2022-10-06 02:56] LABS: Alanine Aminotransferase 15 U/L (0-33); Alkaline Phosphatase 51 U/L (35-105); Anion Gap 17.7 (5-19); Aspartate Amino Transferase 34 U/L (0-32); Blood Urea Nitrogen 9 mg/dL (8-23); C Reactive Protein 140.7 mg/L (0.0-4.9); Calcium 7.4 mg/dL (8.5-10.5); Carbon Dioxide 17 mmol/L (22-29); Chloride 87 mmol/L (98-107); Creatinine Clr Calc Pharmacy 67.6947; Globulin 2.2 g/dL (1.3-4.6); Glomerular Filtration Rate 122.3 mL/min (90-130); Glucose 177 mg/dL (65-115); Magnesium 1.5 mg/dL (1.7-2.3); Osmolality Calculated 251 mOsm/kg (285-295); Total Bilirubin 0.4 mg/dL (0.15-1.2); Total Protein 5.2 g/dL (6.6-8.7)
[2022-10-06 03:13] LABS: Potassium 2.7 mmol/L (3.5-5.1); Sodium 119 mmol/L (136-145)
--- NOTE | 2022-10-06 03:39 | PM.HP ---
Providers/Chief Complaint Admitting Physician: Case Lynne MD Primary Care Provider: Pretty Lynne NP Chief Complaint: syncope History of Present Illness Karen Maynard is a 71 year old female with a past medical history significant for emphysema, lung nodule, panic attacks, tobacco use disorder, depression, anxiety, transient ischemic attack, coronary artery disease, hypertension, diabetes mellitus, and chronic urinary tract infections who presents to the emergency department with right upper extremity weakness times several days. This was followed by patient collapsing prior to bedtime. Due to her presenting symptom, there was concern for stroke. Head CT revealed diffuse atrophy and chronic/remote ischemic changes without any evidence of acute findings. Patient was found to have multiple metabolic derangements including severe hyponatremia, severe hypokalemia, hypochloremia, nonanion gap metabolic acidosis, hypomagnesia, and markedly elevated inflammatory markers. Upon further questioning, patient endorsed diarrhea for the past several days. Also reports fevers. She is unsure how high her fever went but also reports being febrile while in the ambulance. Family is bedside. They report her oral intake has been very poor for the past several days. She endorses associated diffuse weakness. Denies any recent changes to diet. Denies any sick contacts. She has a history of chronic UTIs. A urinalysis is currently pending. Blood cultures were obtained. She denies any other alleviating or aggravating factors. Denies any new coughing, dysuria, or new headaches. Review of Systems Narrative: A complete review of systems was obtained and is negative except as stated in HPI. Medications/Allergies Home Medications Medication Instructions Recorded Confirmed Last Taken Type albuterol sulfate 90 mcg/actuation 1 inh inhalation QID PRN shortness 07/25/22 09/28/22 Unknown Rx aerosol inhaler (Ventolin HFA) of breath or wheezing #8.5 grams aspirin 81 mg tablet,delayed 81 mg PO .QHS 90 days #90 tabs 07/25/22 09/28/22 Unknown Rx release (Adult Low Dose Aspirin) azelastine 205.5 mcg (0.15 %) 2 spray intranasal BID #30 mL 07/25/22 09/28/22 Unknown Rx nasal spray (Astepro Allergy) buspirone 10 mg tablet 10 mg PO QID 30 days #120 tabs 07/25/22 09/28/22 Unknown Rx lisinopril 5 mg tablet 5 mg PO DAILY 30 days #30 tabs 07/25/22 09/28/22 Unknown Rx loratadine 10 mg tablet (Claritin) 10 mg PO DAILY 30 days #30 tabs 07/25/22 09/28/22 Unknown Rx meloxicam 15 mg tablet 15 mg PO DAILY 30 days #30 tabs 07/25/22 09/28/22 Unknown Rx raloxifene 60 mg tablet (Evista) 60 mg PO DAILY 30 days #30 tabs 07/25/22 09/28/22 Unknown Rx trazodone 100 mg tablet 100 mg PO .QHS 30 days #30 tabs 07/25/22 09/28/22 Unknown Rx tiotropium bromide 2.5 2 inh inhalation QAM #4 grams 08/11/22 09/28/22 Unknown Rx mcg/actuation mist for inhalation (Spiriva Respimat) zolpidem 5 mg tablet (Ambien) 5 mg PO .QHS 30 days #30 tabs 09/01/22 09/28/22 Unknown Rx sulfamethoxazole 800 1 tab PO BID 10 days #20 tabs 09/18/22 09/28/22 Unknown Rx mg-trimethoprim 160 mg tablet (Bactrim DS) nitrofurantoin 100 mg PO DAILY 30 days #30 caps 09/28/22 09/28/22 Unknown Rx monohydrate/macrocrystals 100 mg capsule (Macrobid) Allergies Allergy/AdvReac Type Severity Reaction Status Date / Time tetanus toxoid, adsorbed Allergy Unknown Verified 05/15/22 13:38 PFSH Acute PFSH: Medical History (Updated 10/06/22 @ 03:54 by Case Lynne MD) Advanced care planning/counseling discussion Anxiety Breast cancer screening by mammogram Colon cancer screening Depression Diabetes Encounter for smoking cessation counseling Hypertension Osteoporosis screening Postmenopausal Screening for lung cancer Syncope Surgical History H/O: hysterectomy Family History Family/Other No significant medical problems Social History Smoking and tobacco status: current every day smoker cigarettes Packs smoked per day: 1 Years cigarettes smoked: 50 [ Other cigarette details: 1 ppd x 50 years] Vitals/I&O/Wt Last Vital Signs Pulse 95 10/06/22 03:21 Resp 16 10/06/22 03:21 BP 104/65 10/06/22 03:21 Pulse Ox 96 10/06/22 03:21 O2 Del Method Room Air 10/06/22 01:42 Weight last 48 hrs Weight 72.575 kg Physical Exam Narrative: General: Patient is awake. Ill-appearing. Head: Normocephalic. Atraumatic. EOM intact. Dry mucous membranes. Neck: No JVD. Cardiovascular: No gallops. No murmurs. No peripheral edema. Lungs: Breath sounds are slightly coarse, no use of accessory muscles, no crackles or wheezes. Skin: No jaundice. No rashes. Abdomen: Normal bowel sounds, abdomen soft and nontender. Extremities: No cyanosis or clubbing. Musculoskeletal: Normal muscle development for demographic. Neurological: Moves all 4 extremities. No myoclonus. Cranial nerves are grossly intact. No slurred speech. No facial droop. Strength and sensation is grossly intact in all 4 extremities. Data 10/06/22 01:54 10/06/22 01:54 Micro: Microbiology 10/06/22 02:27 Blood Culture - Preliminary Blood SPECIMEN COLLECTED 10/06/22 02:23 Blood Culture - Preliminary Blood SPECIMEN COLLECTED A&P Assessment and plan (1) Diarrhea: CT chest abdomen and pelvis Stool studies Given fever and markedly elevated procalcitonin, will start empiric antibiotics with Cipro/Flagyl (2) Stroke-like symptom: Suspect secondary to acute metabolic encephalopathy rather than stroke Head CT reviewed No acute neurological deficits on exam Consider further imaging pending clinical course (3) Hyponatremia: Severe hyponatremia, suspect hypovolemic Start IV fluids Trend sodium (4) Hypokalemia: Replacing potassium Telemetry monitoring (5) Hypomagnesemia: Replace magnesium (6) Chronic UTI: Urinalysis pending (7) Diabetes: Sliding-scale insulin correction (8) Hypertension: Hold home antihypertensives due to soft blood pressure (9) CAD in [place] artery: Continue aspirin (10) Current every day smoker: Would benefit from cessation Plan DVT prophylaxis: Lovenox CODE STATUS: Full code Attestations Medical Necessity Statement*: Patient presents with strokelike symptoms, found to have several severe metabolic derangements with expected hospitalization for work-up and treatment to cross 2 midnights. Coding Level of Care Code Acute Code for Chg Fwd Diagnoses Diarrhea R19.7 Stroke-like symptom R29.90 Hyponatremia E87.1 Hypokalemia E87.6 Hypomagnesemia E83.42 Chronic UTI N39.0 Diabetes E11.9 Hypertension I10 CAD in [place] artery I25.10 Current every day smoker F17.200
--- NOTE | 2022-10-06 03:43 | ECG_ITS ---
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 Measurements Intervals [place] Rate: 92 P: 187 [place]: 109 QRS: 13 QRSD: 92 T: 15 QT: 374 QTc: 465 Interpretive Statements ECTOPIC ATRIAL RHYTHM WITH SHORT FL INTERVAL MINIMAL ST DEPRESSION [0.025+ mV ST DEPRESSION] ABNORMAL RHYTHM ECG Compared to ECG 10/06/2022 02:18:45 Ectopic atrial rhythm now present Short FL interval now present ST (T wave) deviation now present Sinus tachycardia no longer present Myocardial infarct finding no longer present Electronically Signed On 10-06-2022 18:41:16 CDT by Isai Iniguez M.D. [id number]
--- NOTE | 2022-10-06 04:29 | CTR_ITS ---
PROCEDURE INFORMATION: Exam: CT Chest Without Contrast; Diagnostic Exam date and time: 10/06/2022 4:42 AM Age: 71 years old Clinical indication: Other: Sepsis, diarrhea; Additional info: Sepsis, diarrhea, evaluate source TECHNIQUE: Imaging protocol: Diagnostic computed tomography of the chest without contrast. Radiation optimization: All CT scans at this facility use at least one of these dose optimization techniques: automated exposure control; mA and/or kV adjustment per patient size (includes targeted exams where dose is matched to clinical indication); or iterative reconstruction. REPORTING DATA: Count of CT and Cardiac NM exams in prior 12 months: This patient has received 2 known CTs and 0 known cardiac nuclear medicine studies in the 12 months prior to the current study. COMPARISON: 1. CT chest wo con [id number] 05/10/2022 6:[address] lung screening 02/06/2022 1:48 PM RADIATION DOSE METRICS: Total DLP (mGy-cm): 272.5 FINDINGS: Lungs: Mild upper lung zone emphysema and minimal bibasilar atelectasis. Stable left upper lobe apicoposterior segment 6.7 mm noncalcified pulmonary nodule and 3.5 mm anterior left upper lobe noncalcified nodule. Posterior right apical and posterior left lower lobe calcified granulomas. Pleural spaces: No significant pleural effusion. No pneumothorax. Heart: Heart size is normal. Coronary arteries: Coronary artery calcifications. Lymph nodes: No enlarged lymph nodes. Vasculature: Atherosclerotic tortuosity and calcification of the thoracic aorta. No aortic aneurysm. Bones/joints: No acute osseous abnormality. No acute fracture. Soft tissues: No significant soft tissue abnormalities. COMMENTS: In the absence of a history or active diagnosis of lung cancer, it is recommended that this patient with emphysema be evaluated for enrollment in a low dose CT lung cancer screening program. REFERENCES: Axel Mccain et al. Guidelines for Management of Incidental Pulmonary Nodules Detected on CT Images: From the Fleischner Society 2017. Radiology. 2017;284(1):228-243. PROCEDURE INFORMATION: Exam: CT Abdomen And Pelvis Without Contrast Exam date and time: 10/06/2022 4:42 AM Age: 71 years old Clinical indication: Other: Sepsis, diarrhea; Additional info: Sepsis, diarrhea, evaluate source TECHNIQUE: Imaging protocol: Computed tomography of the abdomen and pelvis without contrast. Radiation optimization: All CT scans at this facility use at least one of these dose optimization techniques: automated exposure control; mA and/or kV adjustment per patient size (includes targeted exams where dose is matched to clinical indication); or iterative reconstruction. REPORTING DATA: Count of CT and Cardiac NM exams in prior 12 months: This patient has received 2 known CTs and 0 known cardiac nuclear medicine studies in the 12 months prior to the current study. COMPARISON: CT chest wo con [id number] 05/10/2022 6:32 AM RADIATION DOSE METRICS: Total DLP (mGy-cm): 426.6 FINDINGS: Liver: No acute abnormality on noncontrast imaging. A couple small hepatic dome calcified granulomas. Gallbladder and bile ducts: Multiple calcified gallstones within relatively nondistended gallbladder. No significant biliary ductal dilatation. Pancreas: No acute abnormality. No ductal dilation. Spleen: No acute abnormality. Small splenic calcified granuloma. Adrenal glands: No significant or acute abnormality. Kidneys and ureters: A few small bilateral renal vascular calcifications. No obstructing calculi. Duplicated left renal collecting system. No hydronephrosis or hydroureter. Stomach and bowel: Fluid and ingested contents within stomach. No disproportionate large or small bowel distention. Fluid within small bowel and throughout the colon with scattered air-fluid levels. No bowel wall pneumatosis. No evidence of diverticulitis. Appendix: No findings to suggest acute appendicitis. Intraperitoneal space: No significant fluid collection. No free air. Vasculature: Vascular patency cannot be assessed on noncontrast imaging. Atherosclerotic vascular calcification. No aortic aneurysm. Lymph nodes: No enlarged lymph nodes. Urinary bladder: Unremarkable as visualized. No bladder calculi. Reproductive: Previous hysterectomy. Bones/joints: No acute osseous abnormality. No dislocation. Soft tissues: No significant soft tissue abnormalities. CT/[place] [id number] IMPRESSION: 1. Mild upper lung zone emphysema and minimal bibasilar atelectasis. 2. Stable left upper lobe apicoposterior segment 6.7 mm noncalcified pulmonary nodule and 3.5 mm anterior left upper lobe noncalcified nodule. Recommend follow-up noncontrast chest CT at 18-24 months from the initial scan 02/06/2022, in keeping with Fleischner recommendations. 3. Atherosclerotic vascular disease including coronary artery disease. IMPRESSION: 1. Diffuse ileus versus enterocolitis or diarrheal illness. 2. Cholelithiasis. 3. Previous hysterectomy. 4. Atherosclerotic vascular disease.
[2022-10-06 04:33] LABS: Amphetamines Screen Urine Negative (Negative); Barbiturates Screen Urine Negative (Negative); Benzodiazepines Screen Urine Negative (Negative); Cocaine Screen Urine Negative (Negative); Opiate Screen Urine Negative (Negative); PCP Screen Urine Negative (Negative); THC Screen Urine Negative (Negative)
[2022-10-06] MEDS: magnesium sulfate premix 2 GM/50 ML PIGGYBACK IV (04:33)
[2022-10-06 04:34] LABS: Bilirubin Urine Neg (Negative); Blood Urine Trace (Negative); Glucose Urine UA Norm (Normal); Ketones Urine 2+ (Negative); Leukocyte Esterase Urine Negative (Negative); Nitrate Urine Negative (Negative); Protein Urine Trace (Negative); Urine Appearance SL Hazy (CLEAR); Urine Color Yellow (Yellow); Urobilinogen Urine Neg (Negative); pH Urine 6 (5-7)
[2022-10-06] MEDS: potassium chloride ER 20 mEq Tablet 40 MEQ PO (04:34)
[2022-10-06] MEDS: sodium chloride 0.9% 1,000 ML 100 ML IV (04:34)
[2022-10-06 04:35] LABS: Add Urine Culture? No; Add Urine Microscopic? YES; Bacteria Urine 1+ /hpf; RBC Urine 0-4 /hpf (0-2)
[2022-10-06 04:55] LABS: Albumin Level 2.9 g/dL (3.5-5.2); Anion Gap 17.5 (5-19); Blood Urea Nitrogen 8 mg/dL (8-23); Calcium 7.8 mg/dL (8.5-10.5); Carbon Dioxide 17 mmol/L (22-29); Chloride 88 mmol/L (98-107); Glomerular Filtration Rate 158.3 mL/min (90-130); Glucose 169 mg/dL (65-115); Phosphorus 1.8 mg/dL (2.5-4.5); Sodium 120 mmol/L (136-145); Troponin 5 2HR 27.21 ng/L (0-10)
[2022-10-06 05:02] LABS: Creatinine Clr Calc Pharmacy 67.6947; Troponin 5 2HR Delta -8.79 ABS# (0-10)
[2022-10-06 05:04] LABS: Potassium 2.5 mmol/L (3.5-5.1)
[2022-10-06] MEDS: ciprofloxacin 400 MG/200 ML PREMIX 200 MG IV ×2 (05:26→17:18)
[2022-10-06] MEDS: enoxaparin 40 mg/0.4 mL Syringe SUBCUT (05:26)
[2022-10-06] MEDS: aspirin 81 mg EC Tablet PO ×2 (05:26→20:29)
[2022-10-06] MEDS: metroNIDAZOLE IV 500 MG/100 ML PREMIX 100 MG IV ×3 (06:08→20:28)
--- NOTE | 2022-10-06 07:43 | ECG_ITS ---
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 Measurements Intervals [place] Rate: 84 P: 22 CT: 191 QRS: -1 QRSD: 99 T: 4 QT: 399 QTc: 474 Interpretive Statements SINUS RHYTHM WITH OCCASIONAL VENTRICULAR PREMATURE COMPLEXES POSSIBLE INFERIOR MYOCARDIAL INFARCTION , PROBABLY OLD [30 ms Q WAVE IN II/aVF] Compared to ECG 10/06/2022 03:51:34 Ventricular premature complex(es) now present Myocardial infarct finding now present Ectopic atrial rhythm no longer present Short CT interval no longer present ST (T wave) deviation no longer present Electronically Signed On 10-06-2022 18:44:03 CDT by Isai Iniguez M.D. [id number]
[2022-10-06 08:28] LABS: Glucose Point of Care 150 mg/dL (70-110)
[2022-10-06 08:34] LABS: Troponin 5 6HR 23.83 ng/L (0-10)
[2022-10-06] MEDS: insulin lispro 100 unit/1 mL SUBCUT ×2 (08:53→17:46)
[2022-10-06] MEDS: BuSPIRONE 10 mg Tablet PO ×2 (08:53→20:50)
[2022-10-06] MEDS: loratadine 10 mg Tablet PO (08:53)
[2022-10-06 09:11] LABS: Sodium 119 mmol/L (136-145)
[2022-10-06 09:36] LABS: Estmated Average Glucose 126
[2022-10-06] MEDS: sodium chloride 3% 100 ML in empty flexible container 1 EACH 200 ML IV (09:59)
--- NOTE | 2022-10-06 10:26 | PM.CONSULT ---
Providers/Reason For Consult Consulting Physician/Specialty*: [facility]/Nephrology Reason for Consult*: Hyponatremia Attending Physician: Vahid Villasenor MD Primary Care Provider: Pretty Lynne NP History of Present Illness History of Present Illness Karen Maynard is a 71 year old female Patient is a 71-year-old female with multiple medical problems including COPD, TIAs, coronary artery disease, hypertension, diabetes, recurrent UTIs presented to the emergency department due to generalized weakness and also suffered a fall at home. CT scan of the head has showed diffuse atrophy with chronic ischemic changes with no acute findings. Patient also reported having diarrhea for the last few days. In the emergency department she was noted to have stable vitals but lab data is significant for sodium of 119 and potassium of 2.7 bicarb of 17. Creatinine is 0.5. Patient has received 3% saline 100 ml. Review of Systems Narrative: negative Medications/Allergies Home Medications Medication Instructions Recorded Confirmed Last Taken Type albuterol sulfate 90 mcg/actuation 1 inh inhalation QID PRN shortness 07/25/22 10/06/22 Unknown Rx aerosol inhaler (Ventolin HFA) of breath or wheezing #8.5 grams aspirin 81 mg tablet,delayed 81 mg PO .QHS 90 days #90 tabs 07/25/22 10/06/22 Unknown Rx release (Adult Low Dose Aspirin) azelastine 205.5 mcg (0.15 %) 2 spray intranasal BID #30 mL 07/25/22 10/06/22 Unknown Rx nasal spray (Astepro Allergy) buspirone 10 mg tablet 10 mg PO QID 30 days #120 tabs 07/25/22 10/06/22 Unknown Rx lisinopril 5 mg tablet 5 mg PO DAILY 30 days #30 tabs 07/25/22 10/06/22 Unknown Rx loratadine 10 mg tablet (Claritin) 10 mg PO DAILY 30 days #30 tabs 07/25/22 10/06/22 Unknown Rx meloxicam 15 mg tablet 15 mg PO DAILY 30 days #30 tabs 07/25/22 10/06/22 Unknown Rx raloxifene 60 mg tablet (Evista) 60 mg PO DAILY 30 days #30 tabs 07/25/22 10/06/22 Unknown Rx trazodone 100 mg tablet 100 mg PO .QHS 30 days #30 tabs 07/25/22 10/06/22 Unknown Rx zolpidem 5 mg tablet (Ambien) 5 mg PO .QHS 30 days #30 tabs 09/01/22 10/06/22 Unknown Rx sulfamethoxazole 800 1 tab PO BID 10 days #20 tabs 09/18/22 10/06/22 Unknown Rx mg-trimethoprim 160 mg tablet (Bactrim DS) nitrofurantoin 100 mg PO DAILY 30 days #30 caps 09/28/22 10/06/22 Unknown Rx monohydrate/macrocrystals 100 mg capsule (Macrobid) tiotropium bromide 2.5 1 inh inhalation QAM 10/06/22 10/06/22 Unknown History mcg/actuation mist for inhalation (Spiriva Respimat) Allergies Allergy/AdvReac Type Severity Reaction Status Date / Time tetanus toxoid, adsorbed Allergy Unknown Verified 05/15/22 13:38 Current Medications Generic Name Dose Route Start Last Admin Trade Name Freq PRN Reason Stop Dose Admin Aspirin 81 mg 10/06/22 04:29 10/06/22 05:26 Aspirin 81 Mg Ec Tablet PO 81 mg BEDTIME MACIEJ Administration Buspirone HCl 10 mg 10/06/22 09:00 10/06/22 08:53 Buspirone 10 Mg Tablet PO 10 mg QID MACIEJ Administration Enoxaparin Sodium 40 mg 10/06/22 04:29 10/06/22 05:26 Enoxaparin 40 Mg/0.4 Ml Syringe SUBCUT 40 mg Q24H MACIEJ Administration Sodium Chloride 1,000 mls @ 100 mls/hr 10/06/22 03:45 10/06/22 04:34 Sodium Chloride 0.9% IV 100 mls/hr .Q10H MACIEJ Administration Ciprofloxacin/Dextrose 400 mg in 200 mls @ 200 mls/hr 10/06/22 04:29 10/06/22 06:31 Cipro IV Infused Q12H MACIEJ Infusion Protocol Metronidazole 500 mg in 100 mls @ 100 mls/hr 10/06/22 05:00 10/06/22 08:52 Flagyl Iv IV Infused Q8H MACIEJ Infusion Protocol Sodium Chloride 100 ml/ N/A 100 mls @ 200 mls/hr 10/06/22 10:00 10/06/22 09:59 IV 10/06/22 10:29 200 mls/hr ONCE ONE Administration Insulin Human Lispro 0 unit 10/06/22 08:00 10/06/22 08:53 Insulin Lispro 100 Unit/1 Ml SUBCUT 1 unit WM&BEDTIME MACIEJ Administration Protocol Loratadine 10 mg 10/06/22 09:00 10/06/22 08:53 Loratadine 10 Mg Tablet PO 10 mg DAILY MACIEJ Administration Trazodone HCl 100 mg 10/06/22 04:29 10/06/22 05:46 Trazodone 100 Mg Tablet PO Not Given BEDTIME MACIEJ Zolpidem Tartrate 5 mg 10/06/22 04:29 10/06/22 05:46 Zolpidem 5 Mg Tablet PO Not Given BEDTIME MACIEJ PFSH Acute PFSH: Medical History (Updated 10/06/22 @ 03:54 by Case Lynne MD) Advanced care planning/counseling discussion Anxiety Breast cancer screening by mammogram Colon cancer screening Depression Diabetes Encounter for smoking cessation counseling Hypertension Osteoporosis screening Postmenopausal Screening for lung cancer Syncope Surgical History H/O: hysterectomy Family History Family/Other No significant medical problems Social History Smoking and tobacco status: current every day smoker cigarettes Packs smoked per day: 1 Years cigarettes smoked: 50 [ Other cigarette details: 1 ppd x 50 years] Vitals/I&O/Wt Last Vital Signs Temp 97.1 F L 10/06/22 05:05 Pulse 87 10/06/22 09:00 Resp 16 10/06/22 09:00 BP 111/56 10/06/22 09:00 Pulse Ox 97 10/06/22 09:00 O2 Del Method Room Air 10/06/22 09:00 10/05/22 10/06/22 10/06/22 22:59 06:59 14:59 Intake Total 250 / 250 100 / 100 Balance 250 / 250 100 / 100 Weight last 48 hrs Weight 63 kg Weight 72.575 kg Physical Exam Narrative: awake , alert , no distress PEERLA S1S2 RRR per report Lungs clear per report no edema Data 10/06/22 01:54 10/06/22 10:32 Micro: Microbiology 10/06/22 02:27 Blood Culture - Preliminary Blood SPECIMEN COLLECTED 10/06/22 02:23 Blood Culture - Preliminary Blood SPECIMEN COLLECTED A&P Assessment and plan (1) Hyponatremia: Plan 1. Acute on chronic hyponatremia: Patient's baseline sodiums are in the range of high 120s to low 130s. Now presented with a sodium of 119 likely hypovolemic due to recent diarrhea. -Status post bolus 100 mL of 3% saline, a We will check urine sodium and urine osmolality. - Start NS @ 60 cc/hr , BMP Q4H -Noted low IV albumin, will give 25 g IV albumin twice daily -6 to 8 mg correction in the next 24 hours. - ordered IV albumin as well 2. Hypokalemia: We will replete 3. Strokelike symptoms: Work-up for stroke negative so far, likely from metabolic encephalopathy and hyponatremia 4. Metabolic acidosis: Bicarbonate of 17, will add Bicitra Patient evaluated using audiovisual cart. Time spent 40 minutes. Consult Attestations Medical Necessity Statement: per medicine Coding Level of Care Code Acute Code for [facility] Diagnoses Hyponatremia E87.1
[2022-10-06] MEDS: ondansetron 2 mg/ML SDV 2 mL 4 MG IVP (10:34)
[2022-10-06 11:01] LABS: Albumin Level 2.9 g/dL (3.5-5.2); Anion Gap 13.5 (5-19); Blood Urea Nitrogen 7 mg/dL (8-23); Calcium 7.5 mg/dL (8.5-10.5); Carbon Dioxide 19 mmol/L (22-29); Chloride 92 mmol/L (98-107); Glomerular Filtration Rate 158.3 mL/min (90-130); Glucose 161 mg/dL (65-115); Phosphorus 1.3 mg/dL (2.5-4.5); Sodium 122 mmol/L (136-145)
[2022-10-06 11:02] LABS: Potassium 2.5 mmol/L (3.5-5.1)
[2022-10-06 11:17] LABS: Vitamin B12 209 pg/mL (232-1245)
--- NOTE | 2022-10-06 11:31 | PM.MISC ---
Miscellaneous Note Note: Patient examined in front of her family members ICU nurse present as well Other than right upper extremity weakness no other complaints Clinically looks dehydrated S1, S2 Currently on room air Hyponatremia noted, given 3% 100 mL back this morning Consult nephro Hypokalemia with hypophosphatemia: Repleted Patient examined No active complaints Family at the bedside Right arm rotator cuff injury Patient is able to eat Full code Continue IV fluid Spoke with nephro this morning Check B12, check sodium every 4 hours Hypovolemic hyponatremia, nephro consulted For enteritis/ileitis continue ciprofloxacin and Flagyl In Case of further worsening abdominal pain we can transition her diet to liquid
[2022-10-06 11:54] LABS: Glucose Point of Care 126 mg/dL (70-110)
[2022-10-06] MEDS: citric acid-sodium citrate 30 mL UDC PO (12:36)
[2022-10-06] MEDS: albumin 25 G/100 ML BAG 60 G IV (12:36)
[2022-10-06] MEDS: magnesium oxide 400 mg tablet PO ×2 (12:37→17:19)
[2022-10-06] MEDS: cyanocobalamin 1,000 mcg/mL SDV 1000 MCG IM (12:37)
[2022-10-06] MEDS: acetaminophen 325 mg Tablet 650 MG PO ×2 (12:40→20:30)
[2022-10-06 13:19] LABS: Sodium 123 mmol/L (136-145)
[2022-10-06 17:09] LABS: Sodium 125 mmol/L (136-145)
[2022-10-06] MEDS: sodium chloride 0.9% 1,000 ML 60 ML IV ×2 (17:19→19:00)
[2022-10-06 17:36] LABS: Glucose Point of Care 144 mg/dL (70-110)
--- NOTE | 2022-10-06 19:15 | PC.NURSE ---
Shift summary: Pt rested in bed throughout the shift except for BSC use. She is alert and oriented. Her electrolytes are out of balance. She has had potassium, phosphate and magnesium replacements today. She also received albumin. She has had multiple lab sticks for blood draws. She has been a real trooper about it. Her Right arm is very weak. She complains of shoulder pain. It seems to hurt worse when she tries to lift it straight out in front. OT worked with her today. PT waiting for potassium levels to improve first. She has been up to BSC frequently to urinate, out put more than adequate. She has had 3/4 bouts of diarrhea, straight brown liquid noted. Family has been at bedside for entirety of visiting hours.
[2022-10-06] MEDS: albumin 25 G/100 ML BAG 50 G IV (20:28)
[2022-10-06] MEDS: zolpidem 5 mg Tablet PO (20:29)
[2022-10-06] MEDS: trazodone 100 mg Tablet PO (20:29)
[2022-10-06 21:11] LABS: Sodium 126 mmol/L (136-145)
[2022-10-06 21:23] LABS: Glucose Point of Care 120 mg/dL (70-110)
[2022-10-07] VITALS (21 sets, daily range): BP systolic 81–134; BP diastolic 49–74; PULSE 56–87; RESP 16–26; TEMP 35.8–37.1; O2SAT 94–100; BMI 22.4
[2022-10-07 02:58] LABS: Basophils % 0.2 %; Eosinophils % 0.7 %; Hematocrit 27.5 % (37.0-47.0); Hemoglobin 9.8 g/dL (11.5-15.3); Lymphocytes # 1.2 10^3/uL (0.8-4.8); Mean Corpuscular HGB Conc 35.6 g/dL (30.0-36.0); Mean Corpuscular Hemoglobin 29.3 pg (28.0-34.0); Mean Corpuscular Volume 82.1 fl (81-99); Mean Platelet Volume 8.4 fL (7.4-10.4); Monocytes # 0.7 10^3/uL (0.2-0.9); Monocytes % 16.2 %; Neutrophils # 2.33 10^3/uL (1.8-7.7); Nucleated Red Blood Cells % 0 %; Platelet Count 207 10^3/cmm (130-400); Red Blood Count 3.35 10^6/uL (4.1-5.3); Red Cell Distribution Width 15.9 % (12.1-15.1); White Blood Count 4.3 10^3/uL (4.0-10.0)
[2022-10-07 03:17] LABS: Alanine Aminotransferase 15 U/L (0-33); Albumin Level 3.3 g/dL (3.5-5.2); Alkaline Phosphatase 41 U/L (35-105); Anion Gap 12.5 (5-19); Aspartate Amino Transferase 31 U/L (0-32); Blood Urea Nitrogen 5 mg/dL (8-23); Calcium 7.9 mg/dL (8.5-10.5); Carbon Dioxide 19 mmol/L (22-29); Chloride 100 mmol/L (98-107); Globulin 1.9 g/dL (1.3-4.6); Glomerular Filtration Rate 220.6 mL/min (90-130); Glucose 102 mg/dL (65-115); Osmolality Calculated 265 mOsm/kg (285-295); Sodium 129 mmol/L (136-145); Total Bilirubin 0.3 mg/dL (0.15-1.2); Total Protein 5.2 g/dL (6.6-8.7)
[2022-10-07 03:20] LABS: Phosphorus 2.2 mg/dL (2.5-4.5)
[2022-10-07 03:22] LABS: Potassium 2.5 mmol/L (3.5-5.1)
[2022-10-07] MEDS: potassium chloride ER 20 mEq Tablet 40 MEQ PO (04:12)
[2022-10-07] MEDS: ciprofloxacin 400 MG/200 ML PREMIX 200 MG IV ×2 (04:12→16:45)
[2022-10-07] MEDS: enoxaparin 40 mg/0.4 mL Syringe SUBCUT (04:12)
[2022-10-07] MEDS: albumin 25 G/100 ML BAG 50 G IV (04:29)
[2022-10-07] MEDS: metroNIDAZOLE IV 500 MG/100 ML PREMIX 100 MG IV ×3 (04:45→21:45)
--- NOTE | 2022-10-07 07:13 | PM.PN ---
Subjective Subjective: No overnight events Left leg imbalance noted Electrolytes were replenished Right upper extremity limited range of motion related to rotator cuff no acute worsening Sodium improved Discontinue IV fluids We will touch base with nephro She can be transferred out of ICU Vitals/I&O/Wt Last Vital Signs Temp 97.1 F L 10/06/22 05:05 Pulse 70 10/07/22 05:47 Resp 21 H 10/07/22 04:00 BP 117/62 10/07/22 04:00 Pulse Ox 99 10/07/22 04:00 O2 Del Method Room Air 10/06/22 20:00 10/06/22 10/07/22 10/07/22 22:59 06:59 14:59 Intake Total 1619 / 3348.333 1000 / 4348.333 Output Total 2400 / 4900 1500 / 6400 Balance -781 / -1551.667 -500 / -2051.667 Weight last 48 hrs Weight 63 kg Weight 63 kg Weight 72.575 kg Physical Exam Narrative: Signs of dehydration improving Able to eat NIH 0 Right upper extremity weakness is related to greater cuff tear GCS 15 Hemodynamically stable Abdomen soft Lower extremity no weakness Pleasant and cooperative S1, S2 Data 10/08/22 02:27 10/08/22 02:27 Micro: Microbiology 10/06/22 02:27 Blood Culture - Preliminary Blood NEGATIVE TO DATE 10/06/22 02:23 Blood Culture - Preliminary Blood NEGATIVE TO DATE A&P Assessment and plan (1) Diarrhea: (2) Stroke-like symptom: (3) Hyponatremia: (4) Hypokalemia: (5) Hypomagnesemia: (6) Chronic UTI: (7) Depression: (8) OA (osteoarthritis): (9) Hypertension: (10) Diabetes: (11) Pulmonary nodule 1 cm or greater in diameter: (12) Hypophosphatemia: (13) Enteritis: Plan Right upper extremity weakness not related to stroke Likely related to rotator cuff tear Appreciate PT and OT recommendations Hypovolemic hyponatremia: Improving, patient received 100 mL bag of hypertonic saline yesterday Hold IV fluids for today and touch base with nephro Hypokalemia hypophosphatemia hypomagnesemia: Repleted Refeeding syndrome? Enteritis, no active signs of worsening abdominal pain or vomiting, continue antibiotics Ciprofloxacin and Flagyl Cultures negative Afebrile Low vitamin B12 supplement with IM injections for next 4 to 5 days She can be transferred out of ICU Disposition plan: Home in next 48 hours Full code Attestations Medical Necessity Statement*: Continue medical management Diagnoses Diarrhea R19.7 Stroke-like symptom R29.90 Hyponatremia E87.1 Hypokalemia E87.6 Hypomagnesemia E83.42 Chronic UTI N39.0 Depression F32.A OA (osteoarthritis) M19.90 Hypertension I10 Diabetes E11.9 Pulmonary nodule 1 cm or greater in diameter R91.1 Hypophosphatemia E83.39 Enteritis K52.9
[2022-10-07 07:45] LABS: Glucose Point of Care 113 mg/dL (70-110)
[2022-10-07] MEDS: magnesium oxide 400 mg tablet PO ×2 (08:06→18:15)
[2022-10-07] MEDS: BuSPIRONE 10 mg Tablet PO ×2 (08:06→21:45)
[2022-10-07] MEDS: loratadine 10 mg Tablet PO (08:07)
[2022-10-07] MEDS: cyanocobalamin 1,000 mcg/mL SDV 1000 MCG IM (08:10)
--- NOTE | 2022-10-07 11:29 | PC.NURSE ---
Report called to [facility]. Report given to IVAN Mathis. All questions answered.
--- NOTE | 2022-10-07 11:32 | P.PN_ITS ---
Subjective Subjective: Continues to have watery diarrhea Medications: Reviewed: Yes Vitals/I&O/Wt Last Vital Signs Temp 98.7 F 10/07/22 08:00 Pulse 71 10/07/22 09:50 Resp 16 10/07/22 09:50 BP 115/68 10/07/22 09:00 Pulse Ox 97 10/07/22 09:50 O2 Del Method Room Air 10/07/22 09:50 10/06/22 10/07/22 10/07/22 22:59 06:59 14:59 Intake Total 1619 / 3348.333 1000 / 4348.333 1465 / 1465 Output Total 2400 / 4900 1500 / 6400 600 / 600 Balance -781 / -1551.667 -500 / -2051.667 865 / 865 Weight last 48 hrs Weight 63 kg Weight 63 kg Weight 72.575 kg Physical Exam Narrative: awake , alert , no distress PEERLA S1S2 RRR per report Lungs clear per report no edema Data 10/07/22 02:30 10/07/22 02:30 Micro: Microbiology 10/06/22 02:27 Blood Culture - Preliminary Blood NEGATIVE TO DATE 10/06/22 02:23 Blood Culture - Preliminary Blood NEGATIVE TO DATE A&P Assessment and plan (1) Hyponatremia: Plan 1. Acute on chronic hyponatremia: Patient's baseline sodiums are in the range of high 120s to low 130s. Now presented with a sodium of 119 likely hypovolemic due to recent diarrhea. -Status post bolus 100 mL of 3% saline, follow up urine sodium and urine osmolality. - continue NSwith 20 MEQ KCL @ 50 cc/hr , -Noted low IV albumin, will give 25 g IV albumin twice daily -Na 129 today - ordered IV albumin as well 2. Hypokalemia: We will replete aggressively 3. Strokelike symptoms: Work-up for stroke negative so far, likely from metabolic encephalopathy and hyponatremia 4. Metabolic acidosis: Bicarbonate of 17, will add Bicitra 5. diarrhea : checkhing C dif Patient evaluated using audiovisual cart. Time spent 40 minutes. Attestations 2 Medical Necessity Statement*: per medicine Coding Level of Care Code Acute Code for [facility] Diagnoses Hyponatremia E87.1
--- NOTE | 2022-10-07 11:36 | USCV_ITS ---
Karen Maynard Age: 71 Gender: F : 1950 Exam Date: 10/07/2022 15:06 Ordering Phys: Vahid Villasenor MD Technologist: GUERA Exam Location: [facility] Indication: murmur BP: / HR: 65 Rhythm: Sinus Technical Quality: Adequate MEASUREMENTS (Male / Female) Normal Values 2D ECHO LV Diastolic Diameter PLAX 4.9 cm 4.2 - 5.9 / 3.9 - 5.3 cm LV Systolic Diameter PLAX 3.4 cm IVS Diastolic Thickness 0.6 cm 0.6 - 1.0 / 0.6 - 0.9 cm IVS Systolic Thickness 0.9 cm LVPW Diastolic Thickness 0.5 cm 0.6 - 1.0 / 0.6 - 0.9 cm LVPW Systolic Thickness 1.0 cm LVOT Diameter 2.0 cm LV Ejection Fraction 2D Teich 59.5 % LV Ejection Fraction MOD 2C 36.8 % LV Ejection Fraction 2C AL 36.6 % LA Diameter 4.3 cm IVC Diameter 2.2 cm M-MODE Aortic Annulus Diameter 2.8 cm LA Ao Ratio MM 1.6 MV E Point Septal Separation 0.8 cm DOPPLER AV Peak Velocity 189.0 cm/s LVOT Peak Velocity 124.0 cm/s AV Area Cont Eq vti 2.3 cm squared AV Area Cont Eq pk 2.1 cm squared MV Area PHT 6.7 cm squared Mitral E to A Ratio 1.2 MV E' Velocity 52.0 cm/s Mitral E to MV E' Ratio 8.8 Mitral E to LV E' Lateral Ratio 7.5 Mitral E to LV E' Septal Ratio 10.6 TR Peak Velocity 259.3 cm/s TR Peak Gradient 26.9 mmHg TV Peak E Velocity 61.0 cm/s Right Atrial Pressure 6.0 mmHg Pulmonary Artery Systolic Pressu 32.9 mmHg PV Peak Velocity 67.0 cm/s FINDINGS Left Ventricle Normal left ventricular size, systolic function and wall thickness, with no regional wall motion abnormalities. Left ventricular ejection fraction is estimated at 60 %. .Grade II/IV diastolic dysfunction, moderately elevated filling pressures. Right Ventricle The right ventricle is normal in size and function. Right Atrium The right atrium is normal in size. Left Atrium The left atrium is normal in size. Mitral Valve Structurally normal mitral valve without significant stenosis or prolapse. There is mild mitral regurgitation. Aortic Valve Moderate aortic valve calcification. Mild aortic valve stenosis, mean gradient 5.7 mmHg, JUDY 2.3 cm squared. Trace aortic valve regurgitation. Tricuspid Valve Structurally normal tricuspid valve without significant stenosis but trace regurgitation. Pulmonary artery systolic pressure is normal. Pulmonic Valve Structurally normal pulmonic valve without significant stenosis. There is no pulmonic regurgitation. Pericardium Normal pericardium without effusion. Aorta Normal ascending aorta dimension. IVC The inferior vena cava appears normal. CONCLUSIONS 1-Normal left ventricular size, systolic function and wall thickness, with no regional wall motion abnormalities. Left ventricular ejection fraction is estimated at 60 %. .Grade II/IV diastolic dysfunction, moderately elevated filling pressures. 2-Moderate aortic valve calcification. Mild aortic valve stenosis, mean gradient 5.7 mmHg, JUDY 2.3 cm squared. Trace aortic valve regurgitation. 3-Structurally normal tricuspid valve without significant stenosis but trace regurgitation. Pulmonary artery systolic pressure is normal. 4-Structurally normal mitral valve without significant stenosis or prolapse. There is mild mitral regurgitation. 5-There is no pericardial effusion. 6-Right atrial pressure is around 5 mm of mercury. Vahid Flowers MD (Electronically Signed) Final Date: 08 October 2022 14:29 S
[2022-10-07 11:40] LABS: Glucose Point of Care 142 mg/dL (70-110)
[2022-10-07] MEDS: insulin lispro 100 unit/1 mL SUBCUT ×2 (11:46→18:15)
[2022-10-07] MEDS: albumin 25 G/100 ML BAG 60 G IV ×2 (11:47→20:36)
[2022-10-07] MEDS: sodium chlor 0.45% +KCl 20 mEq 20 MEQ/1,000 ML BAG 50 MEQ IV (11:48)
--- NOTE | 2022-10-07 13:27 | PC.NURSE ---
Pt transferred to room 278-2 after she finished lunch. packed up belongings and carried to new room.
--- NOTE | 2022-10-07 13:30 | PC.NURSE ---
Patient arrived to med/surg 278-2.
[2022-10-07 18:00] LABS: Glucose Point of Care 155 mg/dL (70-110)
[2022-10-07] MEDS: citric acid-sodium citrate 30 mL UDC PO (18:15)
[2022-10-07 20:01] LABS: Glucose Point of Care 126 mg/dL (70-110)
[2022-10-07] MEDS: aspirin 81 mg EC Tablet PO (21:45)
[2022-10-07] MEDS: trazodone 100 mg Tablet PO (21:45)
[2022-10-07] MEDS: zolpidem 5 mg Tablet PO (21:45)
[2022-10-08 03:33] LABS: Basophils % 0.4 %; Eosinophils % 0.4 %; Hemoglobin 9.4 g/dL (11.5-15.3); Lymphocytes # 2.2 10^3/uL (0.8-4.8); Lymphocytes % 38.4 %; Mean Corpuscular HGB Conc 34.8 g/dL (30.0-36.0); Mean Corpuscular Hemoglobin 28.9 pg (28.0-34.0); Mean Corpuscular Volume 83.1 fl (81-99); Mean Platelet Volume 8.5 fL (7.4-10.4); Monocytes # 0.7 10^3/uL (0.2-0.9); Monocytes % 12.8 %; Neutrophils # 2.68 10^3/uL (1.8-7.7); Neutrophils % 46.9 %; Nucleated Red Blood Cells % 0 %; Platelet Count 228 10^3/cmm (130-400); Red Blood Count 3.25 10^6/uL (4.1-5.3); Red Cell Distribution Width 16.2 % (12.1-15.1); White Blood Count 5.7 10^3/uL (4.0-10.0)
[2022-10-08 03:56] VITALS: BP 124/70; PULSE 72; RESP 17; TEMP 36.2; O2SAT 97
[2022-10-08 04:07] LABS: Magnesium 1.9 mg/dL (1.7-2.3); Phosphorus 2.6 mg/dL (2.5-4.5)
[2022-10-08 04:11] LABS: Alanine Aminotransferase 12 U/L (0-33); Albumin Level 3.9 g/dL (3.5-5.2); Alkaline Phosphatase 39 U/L (35-105); Aspartate Amino Transferase 22 U/L (0-32); Blood Urea Nitrogen 3 mg/dL (8-23); Carbon Dioxide 21 mmol/L (22-29); Chloride 103 mmol/L (98-107); Globulin 1.6 g/dL (1.3-4.6); Glomerular Filtration Rate 158.3 mL/min (90-130); Glucose 129 mg/dL (65-115); Osmolality Calculated 278 mOsm/kg (285-295); Sodium 135 mmol/L (136-145); Total Bilirubin 0.2 mg/dL (0.15-1.2); Total Protein 5.5 g/dL (6.6-8.7)
[2022-10-08] MEDS: albumin 25 G/100 ML BAG 60 G IV (04:11)
[2022-10-08 04:22] LABS: Anion Gap 14.3 (5-19); Potassium 3.3 mmol/L (3.5-5.1)
[2022-10-08] MEDS: ciprofloxacin 400 MG/200 ML PREMIX 200 MG IV (04:42)
[2022-10-08] MEDS: enoxaparin 40 mg/0.4 mL Syringe SUBCUT (04:43)
[2022-10-08] MEDS: metroNIDAZOLE IV 500 MG/100 ML PREMIX 100 MG IV (05:47)
[2022-10-08 06:00] VITALS: PULSE 71
[2022-10-08 06:43] LABS: Glucose Point of Care 109 mg/dL (70-110)
[2022-10-08 08:00] VITALS: BP 126/70; PULSE 82; RESP 18; TEMP 36.4; O2SAT 99
[2022-10-08 08:49] VITALS: PULSE 82; RESP 16; O2SAT 99
[2022-10-08] MEDS: cyanocobalamin 1,000 mcg/mL SDV 1000 MCG IM (09:40)
[2022-10-08] MEDS: loratadine 10 mg Tablet PO (09:40)
[2022-10-08] MEDS: magnesium oxide 400 mg tablet PO (09:40)
[2022-10-08] MEDS: BuSPIRONE 10 mg Tablet PO (09:53)
[2022-10-08] MEDS: citric acid-sodium citrate 30 mL UDC PO (09:53)
--- NOTE | 2022-10-08 11:10 | PM.DCS ---
Discharge Providers Date of Admission: 10/06/22 04:29 Date of Discharge: October 08, 2022 Attending Provider at Admission: Case Lynne MD Attending Provider at Discharge: Vahid Villasenor MD Primary Care Provider: Pretty Lynne NP Diagnoses at Discharge Discharge Diagnosis (1) Diarrhea: Status: Acute (2) Stroke-like symptom: Status: Acute (3) Hyponatremia: Status: Acute (4) Hypokalemia: Status: Acute (5) Hypomagnesemia: Status: Acute (6) Chronic UTI: Status: Acute (7) Depression: Status: Acute (8) OA (osteoarthritis): Status: Acute (9) Hypertension: Status: Acute (10) Diabetes: Status: Acute (11) Pulmonary nodule 1 cm or greater in diameter: Status: Acute (12) Hypophosphatemia: Status: Acute (13) Enteritis: Status: Acute Reason for Visit Reason for Visit: syncope Hospital Course Hospital Course 71-year female who present to the hospital for generalized weakness and fatigue and right upper extremity weakness, there was initially concern for stroke however she was not a tPA candidate, she was experiencing diarrhea, C. difficile ruled out CT abdomen pelvis showed enteritis, her stool became semiformed, she remained afebrile she was extremely lethargic and fatigued PT and OT saw her and diagnosed with a rotator cuff tear of right extremity, her sodium was critically low at 119 which was replenished with hypertonic saline, nephro was consulted as well she had hypovolemic hyponatremia which improved very well with IV fluid hydration, she did not experience any worsening of her symptoms during hospitalization she was transferred out of ICU to [facility], she is tolerating her diet, doing well on room air, she is being discharged with stable hemodynamics. For her UTI she will get 7-day course of antibiotics. C. difficile was ruled out. Patient also received albumin for hypoalbuminemia however she remained hemodynamically stable. Physical Exam Narrative: Patient is awake and alert NIH 0 GCS 15 Pleasant cooperative Signs of dehydration proving Patient excited to go home Awake and alert Nonfocal neuro exam Abdomen soft S1, S2 Doing well on room air Discharge Data Studies Completed and Pending Completed Studies During Hospitalization Category Date Time Status CT chest abdomen pelvis [[place] [id number] Cat Scan 10/06/22 04:29 Completed ] Routine CT head wo con* [id number] Stat Cat Scan 10/06/22 01:44 Completed XR chest 1V portable [id number] Stat Exams 10/06/22 01:42 Completed Pending at discharge Category Date Time Status Blood Culture Stat Lab 10/06/22 02:27 Results CV. echo complete* [id number] Routine Ultrasound 10/07/22 11:36 Taken Radiology Impressions Chest X-Ray 10/06/22 01:42 IMPRESSION: No acute abnormality demonstrated. Head CT 10/06/22 01:44 IMPRESSION: Diffuse atrophy and chronic/remote ischemic changes without evidence of superimposed acute infarct, hemorrhage or mass-effect at this time. ASSESSMENT: ASPECTS ([place] Stroke Program Early CT Score) is 10. Chest/Abdomen/Pelvis CT 10/06/22 04:29 IMPRESSION: 1. Mild upper lung zone emphysema and minimal bibasilar atelectasis. 2. Stable left upper lobe apicoposterior segment 6.7 mm noncalcified pulmonary nodule and 3.5 mm anterior left upper lobe noncalcified nodule. Recommend follow-up noncontrast chest CT at 18-24 months from the initial scan 02/06/2022, in keeping with Fleischner recommendations. 3. Atherosclerotic vascular disease including coronary artery disease. IMPRESSION: 1. Diffuse ileus versus enterocolitis or diarrheal illness. 2. Cholelithiasis. 3. Previous hysterectomy. 4. Atherosclerotic vascular disease. Laboratory Results WBC 5.7 10^3/uL (4.0-10.0) 10/08/22 02:27 RBC 3.25 10^6/uL (4.1-5.3) L 10/08/22 02:27 Hgb 9.4 g/dL (11.5-15.3) L 10/08/22 02:27 Hct 27.0 % (37.0-47.0) L 10/08/22 02:27 MCV 83.1 fl (81-99) 10/08/22 02:27 MCH 28.9 pg (28.0-34.0) 10/08/22 02:27 MCHC 34.8 g/dL (30.0-36.0) 10/08/22 02:27 RDW 16.2 % (12.1-15.1) H 10/08/22 02:27 Plt Count 228 10^3/cmm (130-400) 10/08/22 02:27 MPV 8.5 fL (7.4-10.4) 10/08/22 02:27 Neut % (Auto) 46.9 % 10/08/22 02:27 Lymph % (Auto) 38.4 % 10/08/22 02:27 Geary % (Auto) 12.8 % 10/08/22 02:27 Eos % (Auto) 0.4 % 10/08/22 02:27 Baso % (Auto) 0.4 % 10/08/22 02:27 Neut # (Auto) 2.68 10^3/uL (1.8-7.7) 10/08/22 02:27 Lymph # (Auto) 2.2 10^3/uL (0.8-4.8) 10/08/22 02: Geary # (Auto) 0.7 10^3/uL (0.2-0.9) 10/08/22 02:27 Eos # (Auto) 0.0 10^3/uL (0.0-0.8) 10/08/22 02: Baso # (Auto) 0.0 10^3/uL (0.0-0.1) 10/08/22 02:27 Nucleated RBC % (auto) 0 % 10/08/22 02:27 Nucleated RBCs # 0.0 /100WBC 10/08/22 02:27 PT 16.70 SECONDS (12.1-14.9) H 10/06/22 01:54 INR 1.31 (0.8-1.2) H 10/06/22 01:54 APTT 33.3 SECONDS (23.9-36.7) 10/06/22 01:54 Sodium 135 mmol/L (136-145) L 10/08/22 02:27 Potassium 3.3 mmol/L (3.5-5.1) L 10/08/22 02:27 Chloride 103 mmol/L (98-107) 10/08/22 02:27 Carbon Dioxide 21 mmol/L (22-29) L 10/08/22 02:27 Anion Gap 14.3 (5-19) 10/08/22 02:27 BUN 3 mg/dL (8-23) L 10/08/22 02:27 Creatinine 0.4 mg/dL (0.5-0.9) L 10/08/22 02:27 GFR Calculation 158.3 mL/min (90-130) H 10/08/22 02:27 Glucose 129 mg/dL (65-115) H 10/08/22 02:27 POC Glucose 109 mg/dL (70-110) 10/08/22 06:38 Estimat Average Glucose 126 10/06/22 01:54 Hemoglobin A1c 6.0 % (4.0-6.0) 10/06/22 01:54 Calculated Osmolality 278 mOsm/kg (285-295) L 10/08/22 02:27 Lactic Acid 1.0 mmol/L (0.5-2.2) 10/06/22 01:54 Calcium 8.0 mg/dL (8.5-10.5) L 10/08/22 02:27 Phosphorus 2.6 mg/dL (2.5-4.5) 10/08/22 02:27 Magnesium 1.9 mg/dL (1.7-2.3) 10/08/22 02:27 Total Bilirubin 0.2 mg/dL (0.15-1.2) 10/08/22 02:27 AST 22 U/L (0-32) 10/08/22 02:27 ALT 12 U/L (0-33) 10/08/22 02:27 Alkaline Phosphatase 39 U/L (35-105) 10/08/22 02:27 Troponin T Baseline 36 ng/L (0-10) H 10/06/22 01:54 Troponin T 120 Minute 27.21 ng/L (0-10) H 10/06/22 04:20 Delta Troponin T -8.79 ABS# (0-10) L 10/06/22 04:20 Troponin T Hi Sens 6Hr 23.83 ng/L (0-10) H 10/06/22 07:50 Troponin T Hi Sens 6Hr Delta -12.17 ng/L (0-12) L 10/06/22 07:50 C-Reactive Protein 140.7 mg/L (0.0-4.9) H 10/06/22 01:54 NT-Pro-B Natriuret Pep 1539 pg/mL (0-125) H 10/06/22 01:54 Total Protein 5.5 g/dL (6.6-8.7) L 10/08/22 02:27 Albumin 3.9 g/dL (3.5-5.2) 10/08/22 02:27 Globulin 1.6 g/dL (1.3-4.6) 10/08/22 02:27 Vitamin B12 209 pg/mL (232-1245) L 10/06/22 10:32 Procalcitonin 17.93 ng/mL (0-0.5) H 10/06/22 01:54 Urine Color Yellow (Yellow) 10/06/22 04:06 Urine Appearance Sl hazy (CLEAR) A 10/06/22 04:06 Urine pH 6 (5-7) 10/06/22 04:06 Ur Specific Jeffers 1.020 (1.005-1.030) 10/06/22 04:06 Urine Protein Trace (Negative) 10/06/22 04:06 Urine Glucose (UA) Norm (Normal) 10/06/22 04:06 Urine Ketones 2+ (Negative) H 10/06/22 04:06 Urine Blood Trace (Negative) H 10/06/22 04:06 Urine Nitrate Negative (Negative) 10/06/22 04:06 Urine Bilirubin Neg (Negative) 10/06/22 04:06 Urine Urobilinogen Neg mg/dL (Negative) 10/06/22 04:06 Ur Leukocyte Esterase Negative (Negative) 10/06/22 04:06 Urine RBC 0-4 /hpf (0-2) H 10/06/22 04:06 Urine WBC None /hpf (0-5) 10/06/22 04:06 Ur Squamous Epith Cells 5-10 /hpf (0-5) H 10/06/22 04:06 Amorphous Sediment Not Reportable 10/06/22 04:06 Urine Bacteria 1+ /hpf (NONE) H 10/06/22 04:06 Urine Opiates Screen Negative ng/mL (Negative) 10/06/22 04:06 Ur Barbiturates Screen Negative ng/mL (Negative) 10/06/22 04:06 Ur Phencyclidine Scrn Negative ng/mL (Negative) 10/06/22 04:06 Ur Amphetamines Screen Negative ng/mL (Negative) 10/06/22 04:06 U Benzodiazepines Scrn Negative ng/mL (Negative) 10/06/22 04:06 Urine Cocaine Screen Negative ng/mL (Negative) 10/06/22 04:06 U Marijuana (THC) Screen Negative ng/mL (Negative) 10/06/22 04:06 Vitals Last Vital Signs Temp 97.6 F 10/08/22 08:00 Pulse 82 10/08/22 08:49 Resp 16 10/08/22 08:49 BP 126/70 10/08/22 08:00 Pulse Ox 99 10/08/22 08:49 O2 Del Method Room Air 10/08/22 08:49 Discharge Plan Discharge Patient Disposition: Home Condition: Stable Prescriptions: New magnesium oxide 400 mg (241.3 mg magnesium) Tablet 400 mg PO BID Qty: 6 0RF cyanocobalamin (vitamin B-12) 1,000 mcg capsule 1,000 mcg PO DAILY Qty: 90 3RF amlodipine 5 mg tablet 5 mg PO DAILY Qty: 30 0RF cefpodoxime 200 mg tablet 200 mg PO BID Qty: 6 0RF Rx Instructions: must administer with a meal/food loperamide [Imodium A-D] 2 mg tablet 1 mg PO Q12H PRN (Reason: loose stool) Qty: 5 0RF potassium chloride 10 mEq tablet extended release 10 meq PO DAILY Qty: 10 0RF sodium chloride 1,000 mg tablet,soluble 1,000 mg PO DAILY Qty: 4 0RF Continued zolpidem [Ambien] 5 mg tablet 5 mg PO .QHS 30 Days Qty: 30 1RF albuterol sulfate [Ventolin HFA] 90 mcg/actuation HFA aerosol inhaler 1 inh inhalation QID PRN (Reason: shortness of breath or wheezing) Qty: 8.5 3RF aspirin [Adult Low Dose Aspirin] 81 mg tablet,delayed release (DR/EC) 81 mg PO .QHS 90 Days Qty: 90 1RF buspirone 10 mg tablet 10 mg PO QID 30 Days Qty: 120 5RF loratadine [Claritin] 10 mg tablet 10 mg PO DAILY 30 Days Qty: 30 5RF raloxifene [Evista] 60 mg tablet 60 mg PO DAILY 30 Days Qty: 30 5RF trazodone 100 mg tablet 100 mg PO .QHS 30 Days Qty: 30 5RF azelastine [Astepro Allergy] 205.5 mcg (0.15 %) spray,non-aerosol 2 spray intranasal BID Qty: 30 5RF Rx Instructions: administer into each nostril Spiriva Respimat 2.5 mcg/actuation mist 1 inh INHALATION QAM Discontinued sulfamethoxazole-trimethoprim [Bactrim DS] 800-160 mg tablet 1 tab PO BID 10 Days Qty: 20 0RF nitrofurantoin monohyd/m-cryst [Macrobid] 100 mg capsule 100 mg PO DAILY 30 Days Qty: 30 0RF Rx Instructions: must administer with a meal/food lisinopril 5 mg tablet 5 mg PO DAILY 30 Days Qty: 30 5RF meloxicam 15 mg tablet 15 mg PO DAILY 30 Days Qty: 30 5RF Discharge Orders: Discharge Order (Routine); Ordered 10/08/22 Ordered By: Vahid Villasenor Referrals: Pretty Lynne NP [Primary Care Provider] - 2 weeks Patient Instructions: Opioid Safety Discharge Attestations Time Spent in Discharge Care*: greater than 30 min Quality Metrics Clinical Quality Measures [ No reported AMI, CVA or VTE this stay] Coding Level of Care Code Acute Code for g Fwd Diagnoses Diarrhea R19.7 Stroke-like symptom R29.90 Hyponatremia E87.1 Hypokalemia E87.6 Hypomagnesemia E83.42 Chronic UTI N39.0 Depression F32.A OA (osteoarthritis) M19.90 Hypertension I10 Diabetes E11.9 Pulmonary nodule 1 cm or greater in diameter R91.1 Hypophosphatemia E83.39 Enteritis K52.9
[2022-10-08 11:25] LABS: Glucose Point of Care 185 mg/dL (70-110)
[2022-10-08 11:33] VITALS: BP 136/71; PULSE 76; RESP 16; TEMP 36.3; O2SAT 99
--- NOTE | 2022-10-08 11:33 | PM.PN ---
Subjective Subjective: no new c/o diarrhea better Medications: Reviewed: Yes Vitals/I&O/Wt Last Vital Signs Temp 97.6 F 10/08/22 08:00 Pulse 82 10/08/22 08:49 Resp 16 10/08/22 08:49 BP 126/70 10/08/22 08:00 Pulse Ox 99 10/08/22 08:49 O2 Del Method Room Air 10/08/22 08:49 10/07/22 10/08/22 10/08/22 22:59 06:59 14:59 Intake Total 1000 / 3210 966 / 4176 340 / 340 Balance 1000 / 1410 966 / 2376 340 / 340 Weight last 48 hrs Weight 66.361 kg Weight 63 kg Physical Exam Narrative: awake , alert , no distress PEERLA S1S2 RRR per report Lungs clear per report no edema Data 10/08/22 02:27 10/08/22 02:27 Micro: Microbiology 10/07/22 12:38 Enteric Pathogens (PCR) - Final Stool Routine Collection 10/07/22 12:38 C.difficile Toxin B Gene (PCR) - Final Stool Routine Collection A&P Assessment and plan (1) Hyponatremia: Plan 1. Acute on chronic hyponatremia: Patient's baseline sodiums are in the range of high 120s to low 130s. Now presented with a sodium of 119 likely hypovolemic due to recent diarrhea. -Status post bolus 100 mL of 3% saline, follow up urine sodium and urine osmolality. - continue NSwith 20 MEQ KCL @ 50 cc/hr untill diarrhea resolved -Na 135 today 2. Hypokalemia: We will replete 3. Strokelike symptoms: Work-up for stroke negative so far, likely from metabolic encephalopathy and hyponatremia 4. Metabolic acidosis: Bicarbonate of 17, will add Bicitra 5. diarrhea : checkhing C dif Patient evaluated using audiovisual cart. Time spent 40 minutes. Attestations Medical Necessity Statement*: per medicione Coding Level of Care Code Acute Code for Chg Fwd Diagnoses Hyponatremia E87.1
[2022-10-08] MEDS: insulin lispro 100 unit/1 mL SUBCUT (12:13)
[2022-10-08 12:39] VITALS: BP 136/71; PULSE 76; RESP 16; TEMP 36.3; O2SAT 99
== END 2022-10-08 12:42 | disposition home or self-care (01) | DRG 640 ==
LOC: ER 03:42 → ICU 05:02 → MEDSURG 10-07 13:53
PROVIDERS: Admitting Provider Internal Medicine; Emergency Provider Emergency Medicine; PCP Nurse Practitioner Family; Visit Provider Internal Medicine
DX: E87.1 Hypo-osmolality and hyponatremia (principal); G93.41 Metabolic encephalopathy; N39.0 Urinary tract infection, site not specified; K52.9 Noninfective gastroenteritis and colitis, unspecified; E87.6 Hypokalemia; E87.20 Acidosis, unspecified; J43.9 Emphysema, unspecified; R91.1 Solitary pulmonary nodule; F41.0 Panic disorder [episodic paroxysmal anxiety]; F32.A Depression, unspecified; F41.9 Anxiety disorder, unspecified; Z86.73 Personal history of transient ischemic attack (TIA), and cerebral infarction without residual deficits; I25.10 Atherosclerotic heart disease of native coronary artery without angina pectoris; I10 Essential (primary) hypertension; E11.9 Type 2 diabetes mellitus without complications; Z87.440 Personal history of urinary (tract) infections; Z79.891 Long term (current) use of opiate analgesic; Z79.82 Long term (current) use of aspirin; Z79.51 Long term (current) use of inhaled steroids; E53.8 Deficiency of other specified B group vitamins; F17.210 Nicotine dependence, cigarettes, uncomplicated; Z78.0 Asymptomatic menopausal state; E83.42 Hypomagnesemia
CPT/HCPCS: 36415; 36416; 70450; 71045; 71250; 74176; 80048; 80053; 80069; 80306; 81001; 82607; 82962; 83036; 83605; 83735; 83880; 84100; 84145; 84295; 84484; 85025; 85610; 85730; 86140; 87040; 87493; 87506; 93005; 93306; 96365; 96372; 96376; 97110; 97161; 97165; 97760; 99285; A4565; J0744; J1650; J1815; J2405; J3420; J3475; J3480; J3490; J7030; J7131; P9046; Q3014

== ENCOUNTER → 2022-10-13 09:02 | Outpatient (BNVA) | payer MEDICARE, MEDICAID, SELFPAY | PROVIDERS: PCP Nurse Practitioner Family; Visit Provider Nurse Practitioner Family | DX: E87.6 Hypokalemia (principal); M25.511 Pain in right shoulder; R93.89 Abnormal findings on diagnostic imaging of other specified body structures; R29.898 Other symptoms and signs involving the musculoskeletal system | CPT/HCPCS: 80053 ==

== ENCOUNTER → 2022-10-18 10:26 | Outpatient (BNVA) | payer MEDICARE, MEDICAID, SELFPAY | PROVIDERS: PCP Nurse Practitioner Family; Referring Provider Nurse Practitioner Family; Visit Provider Nurse Practitioner Family | DX: M25.511 Pain in right shoulder (principal) | CPT/HCPCS: 73030 ==

== ENCOUNTER 2022-11-15 06:00 | Outpatient (RCR) | payer MEDICARE, MEDICAID, SELFPAY | END 2022-12-09 23:59 | disposition home or self-care (01) | LOC: APT 06:00 | PROVIDERS: PCP Nurse Practitioner Family; Visit Provider Nurse Practitioner Family | DX: M62.81 Muscle weakness (generalized) (principal) | CPT/HCPCS: 97110; 97112; 97150; 97161 ==

== ENCOUNTER → 2022-11-29 07:38 | Outpatient (BNVA) | payer MEDICARE, MEDICAID, SELFPAY | PROVIDERS: PCP Nurse Practitioner Family; Visit Provider Nurse Practitioner Family | DX: R20.2 Paresthesia of skin (principal); R73.9 Hyperglycemia, unspecified; I10 Essential (primary) hypertension | CPT/HCPCS: 80053; 83036 ==

== ENCOUNTER 2022-12-10 06:00 | Outpatient (RCR) | payer MEDICARE, SELFPAY | END 2023-01-09 23:59 | disposition home or self-care (01) | LOC: APT 06:00 | PROVIDERS: PCP Nurse Practitioner Family; Visit Provider Nurse Practitioner Family | DX: M25.512 Pain in left shoulder (principal) | CPT/HCPCS: 97110; 97112; 97530 ==

== ENCOUNTER 2023-01-10 06:00 | Outpatient (RCR) | payer MEDICARE, SELFPAY | END 2023-01-10 23:59 | disposition home or self-care (01) | LOC: APT 06:00 | PROVIDERS: PCP Nurse Practitioner Family; Visit Provider Nurse Practitioner Family | DX: M62.81 Muscle weakness (generalized) (principal) | CPT/HCPCS: 97110; 97112; 97530 ==

== ENCOUNTER 2023-04-13 10:35 | Outpatient (CLI) | payer MEDICARE, SELFPAY ==
--- NOTE | 2023-04-13 11:00 | CT_ITS ---
WS: [email or web address] CT chest wo con [id number] HISTORY: R91.1 - Solitary pulmonary nodule TECHNIQUE: Axial imaging performed through the thorax. Coronal and sagittal reformats are submitted. All CT scans at [facility] use at least one of these dose optimization techniques: automated exposure control; mA and/or kV adjustment per patient size (includes targeted exams where dose is mat ched to clinical indication); or iterative reconstruction. CONTRAST: None DLP: 341.34 mGy.cm COMPARISON: 02/06/2022, 10/06/2022 Lungs and central airway: Hyperinflated lungs. Reidentified is a 5 mm noncalcified nodule LEFT upper lobe. No additional nodules are identified of concern. There is a less than 3 mm nodule medial LEFT u pper lobe which may be scar. There is evidence for chronic emphysema. Pleura: Normal. No pleural effusion. Heart and pericardium: Normal size heart with no pericardial effusion. Mediastinum and gopi: No mediastinum or hilar adenopathy. Vessels: Advanced atherosclerosis of the coronary arteries and thoracic aorta. Pulmonary artery size is slightly larger than the aorta. Chest wall and lower neck: No soft tissue masses. Upper abdomen: Prior cholecystectomy. No adrenal mass. Mild hepatic steatosis. Hepatic granulomata. Osseous structures: No destructive process. IMPRESSION: 1. Hyperinflated lungs with emphysema. 2. No change in the 5 mm noncalcified LEFT upper lobe nodule. No additional nodules are identified. There are several micronodules but no additional mass or nodule. 3. Pulmonary hypertension. 4. Advanced coronary artery atherosclerosis. 5. Cholelithiasis. 6. No adenopathy.
== END 2023-04-13 10:36 | disposition home or self-care (01) ==
PROVIDERS: PCP Nurse Practitioner Family; Visit Provider Internal Medicine Pulmonary Disease
DX: R91.1 Solitary pulmonary nodule (principal); J43.9 Emphysema, unspecified
CPT/HCPCS: 71250

== ENCOUNTER → 2023-05-11 13:05 | Outpatient (BNVA) | payer MEDICARE, SELFPAY | PROVIDERS: PCP Nurse Practitioner Family; Visit Provider Nurse Practitioner Family | DX: N39.0 Urinary tract infection, site not specified (principal); R31.9 Hematuria, unspecified; F41.9 Anxiety disorder, unspecified; F41.0 Panic disorder [episodic paroxysmal anxiety]; M81.0 Age-related osteoporosis without current pathological fracture; I10 Essential (primary) hypertension; E78.1 Pure hyperglyceridemia; R73.9 Hyperglycemia, unspecified | CPT/HCPCS: 80053; 80061; 83036; 84443; 85025 ==

== ENCOUNTER 2023-06-05 09:15 | Outpatient (CLI) | payer MEDICARE, SELFPAY ==
--- NOTE | 2023-06-05 09:30 | MM_ITS ---
WS: [email or web address] VIEWS: MLO and CC views both breasts. 3D digital tomosynthesis is also included in this exam. Comparison made with prior exam of 02/06/2022.. Findings: There was no sign of mass, architectural distortion or suspicious calcification in either breast. The breasts are almost entirely fatty Impression: MM/[place] [id number] BI-RADS: 1-Negative FOLLOW-UP: 1 Year Follow-up This mammogram was also analyzed by the Computer Aided Detection System R2 [employer]ag [employer].
== END 2023-06-05 09:16 | disposition home or self-care (01) ==
LOC: MOBLMAM 09:19
PROVIDERS: PCP Nurse Practitioner Family; Visit Provider Nurse Practitioner Family
DX: Z12.31 Encounter for screening mammogram for malignant neoplasm of breast (principal)
CPT/HCPCS: 77063; 77067

== ENCOUNTER → 2023-11-14 13:06 | Outpatient (BNVA) | payer MEDICARE, SELFPAY | PROVIDERS: PCP Nurse Practitioner Family; Visit Provider Nurse Practitioner Family | DX: I10 Essential (primary) hypertension (principal); E78.1 Pure hyperglyceridemia; R73.9 Hyperglycemia, unspecified; F41.9 Anxiety disorder, unspecified; E78.2 Mixed hyperlipidemia; F41.0 Panic disorder [episodic paroxysmal anxiety]; M81.0 Age-related osteoporosis without current pathological fracture | CPT/HCPCS: 80053; 80061; 83036; 84443; 85025 ==

== ENCOUNTER 2024-02-15 14:44 | Outpatient (CLI) | payer MEDICARE, SELFPAY ==
--- NOTE | 2024-02-15 15:30 | XR_ITS ---
WS: [email or web address] SCREENING DEXA SCAN [employer] CLINICAL INFORMATION: M81.0 - Age-related osteoporosis without current patholog... COMPARISON: 2021 FINDINGS: The L1-L4 bone mineral density measures 1.109 g/cm2. This corresponds to a T score score of -0.6 and Z score of 0.8. Left femoral neck bone mineral density measures 0.726 g/cm2. This corresponds to a T score of -2.2 an d Z score of -0.9. Right femoral neck bone mineral density measures 0.770 g/cm2. This corresponds to a T score -1.9of an d Z score of -0.5. Mean femoral neck bone mineral density measures 0.748 g/cm2. This corresponds to a T score of -2.1 an d Z score of -0.7. XR/XR DEXA axial skeleton* [id number] IMPRESSION: Normal bone mineralization lumbar spine. Osteopenia femoral necks Patient's FRAX calculated 10 year probability for major osteoporotic fracture i s 15.4% and osteoporotic hip fracture is 4.2%. Bone mineral density lumbar spine increased 0.9% Bone mineral density femoral necks increased 10.3%
== END 2024-02-15 14:45 | disposition home or self-care (01) ==
LOC: RAD 14:45
PROVIDERS: PCP Nurse Practitioner Family; Visit Provider Nurse Practitioner Family
DX: Z13.820 Encounter for screening for osteoporosis (principal); M85.80 Other specified disorders of bone density and structure, unspecified site
CPT/HCPCS: 77080

== ENCOUNTER 2024-02-22 07:52 | Outpatient (CLI) | payer MEDICARE, SELFPAY ==
--- NOTE | 2024-02-22 07:45 | USCV_ITS ---
Karen Maynard Age: 73 Gender: F : 1950 Exam Date: 02/22/2024 08:09 Ordering Phys: Gabi Frankel TACK DRILLER-C Technologist: Fredo Daley Exam Location: [facility] Indication: murmur BP: 142 / 90 HR: 71 Rhythm: Sinus Technical Quality: Adequate MEASUREMENTS (Male / Female) Normal Values 2D ECHO LV Diastolic Diameter PLAX 4.3 cm 4.2 - 5.9 / 3.9 - 5.3 cm IVS Diastolic Thickness 1.1 cm 0.6 - 1.0 / 0.6 - 0.9 cm IVS Systolic Thickness 1.3 cm LVPW Diastolic Thickness 1.3 cm 0.6 - 1.0 / 0.6 - 0.9 cm LVPW Systolic Thickness 1.6 cm LVOT Diameter 2.0 cm LV Ejection Fraction 2D Teich 81.6 % LV Ejection Fraction MOD 4C 60.4 % LV Ejection Fraction MOD 2C 65.6 % LV Ejection Fraction 2C AL 64.6 % LA Diameter 3.6 cm RA Systolic Volume 4C AL 42.1 ml RA Systolic Volume 4C MOD 42.2 ml LA Sys Volume AL 39.6 cm cubed LA Sys Volume Index AL 21.5 cm cubed/m squared Aorta at Sinotubular Diameter 1.9 cm IVC Diameter 1.8 cm M-MODE LA Ao Ratio MM 1.2 AV Cusp Separation MM 1.1 cm DOPPLER AV Peak Velocity 345.3 cm/s LVOT Peak Velocity 70.0 cm/s AV Area Cont Eq vti 1.2 cm squared AV Area Cont Eq pk 0.6 cm squared MV Peak Velocity 98.0 cm/s MV Area PHT 4.0 cm squared Mitral E to A Ratio 0.7 TV Peak Velocity 302.5 cm/s TR Peak Velocity 397.0 cm/s TR Peak Gradient 63.0 mmHg TR Mean Velocity 321.0 cm/s TR Mean Gradient 41.8 mmHg TR Velocity Time Integral 113.1 cm PV Peak Velocity 72.7 cm/s RV Ejection Time 0.4 s FINDINGS Left Ventricle Mild concentric ventricular hypertrophy with normal ejection fraction of 60%. Mild hypokinesia of the basal inferior wall segment. Right Ventricle The right ventricle is normal in size and function. Right Atrium The right atrium is normal in size. Left Atrium The left atrium is normal in size. Mitral Valve Trace mitral valve regurgitation. Aortic Valve Moderate aortic valve stenosis, mean gradient 10.8 mmHg, JUDY 1.2 cm squared. Peak velocity of 3.45 m/s.trace to mild aortic valve regurgitation. Tricuspid Valve Trace tricuspid valve regurgitation. Estimated pulmonary artery peak systolic pressure 42 mmHg Pulmonic Valve Pulmonic valve not well visualized. Pericardium Normal pericardium without effusion. Aorta Plaque seen in the ascending aorta. IVC Inferior vena cava not visualized. CONCLUSIONS Mild concentric ventricular hypertrophy with normal ejection fraction of 60%. Mild hypokinesia of the basal inferior wall segment. Moderate aortic valve stenosis, mean gradient 10.8 mmHg, JUDY 1.2 cm squared. Peak velocity of 3.45 m/s.trace to mild aortic valve regurgitation. Trace tricuspid valve regurgitation. Estimated pulmonary artery peak systolic pressure 42 mmHg. There is no pericardial effusion. There are no intracardiac masses. Compared to the study from 10/07/2022, there is some worsening of the aortic valve stenosis Dr Isai Iniguez MD [facility] (Electronically Signed) Final Date: 22 February 2024 16:30 S
== END 2024-02-22 07:53 | disposition home or self-care (01) ==
LOC: RAD 07:52
PROVIDERS: PCP Nurse Practitioner Family; Visit Provider Nurse Practitioner Family
DX: R01.1 Cardiac murmur, unspecified (principal); I10 Essential (primary) hypertension; I25.10 Atherosclerotic heart disease of native coronary artery without angina pectoris; I51.7 Cardiomegaly; I35.0 Nonrheumatic aortic (valve) stenosis; I35.2 Nonrheumatic aortic (valve) stenosis with insufficiency
CPT/HCPCS: 93306

== ENCOUNTER → 2024-05-06 14:19 | Outpatient (BNVA) | payer MEDICARE, SELFPAY | PROVIDERS: PCP Nurse Practitioner Family; Visit Provider Internal Medicine | DX: R07.9 Chest pain, unspecified (principal); I25.10 Atherosclerotic heart disease of native coronary artery without angina pectoris; E78.1 Pure hyperglyceridemia; I10 Essential (primary) hypertension; I35.0 Nonrheumatic aortic (valve) stenosis | CPT/HCPCS: 93005; 99204 ==

== ENCOUNTER → 2024-05-07 15:57 | Outpatient (BNVA) | payer MEDICARE, SELFPAY | PROVIDERS: Family Provider Nurse Practitioner Family; PCP Nurse Practitioner Family; Visit Provider Nurse Practitioner Family | DX: F32.A Depression, unspecified (principal); F41.9 Anxiety disorder, unspecified; M81.0 Age-related osteoporosis without current pathological fracture; J30.9 Allergic rhinitis, unspecified; F41.0 Panic disorder [episodic paroxysmal anxiety]; E78.2 Mixed hyperlipidemia; I10 Essential (primary) hypertension; E11.9 Type 2 diabetes mellitus without complications; E78.1 Pure hyperglyceridemia; I35.0 Nonrheumatic aortic (valve) stenosis; I25.10 Atherosclerotic heart disease of native coronary artery without angina pectoris; M54.50 Low back pain, unspecified; G89.29 Other chronic pain; J43.9 Emphysema, unspecified; R91.1 Solitary pulmonary nodule | CPT/HCPCS: 80053; 80061; 82306; 83036; 84443; 85025 ==

== ENCOUNTER 2024-06-17 13:06 | Outpatient (CLI) | payer MEDICARE, SELFPAY ==
--- NOTE | 2024-06-17 13:10 | MM_ITS ---
WS: [email or web address] BILATERAL 3D TOMOSYNTHESIS DIGITAL SCREENING MAMMOGRAPHY WITH CAD CLINICAL INFORMATION: SCREENING HISTORY: Screening mammogram. No current complaints. COMPARISON: 2023 TECHNIQUE: Bilateral CC and MLO views. FINDINGS: Scattered fibroglandular densities bilaterally. No suspicious focal mass, asymmetry, calcifications, or architectural distortion. No evidence of malignancy. Lucent centered calcification LEFT breast MM/MM scr BI tomosynthesis [id number] IMPRESSION: DENSITY: There are scattered areas of fibroglandular density. BI-RADS: 2 - Benign. FOLLOW UP: 1 Year Follow-up Recommend return to annual screening mammography.
== END 2024-06-17 13:07 | disposition home or self-care (01) ==
PROVIDERS: Family Provider Nurse Practitioner Family; PCP Nurse Practitioner Family; Visit Provider Nurse Practitioner Family
DX: Z12.31 Encounter for screening mammogram for malignant neoplasm of breast (principal); R92.323 Mammographic fibroglandular density, bilateral breasts; R92.1 Mammographic calcification found on diagnostic imaging of breast
CPT/HCPCS: 77063; 77067

== ENCOUNTER 2024-07-16 14:39 | Emergency (ER) | payer MEDICARE, SELFPAY ==
--- NOTE | 2024-07-16 14:44 | CT_ITS ---
WS: [email or web address] CT HEAD TECHNIQUE: Noncontrast CT of the head obtained from the skullbase to the vertex. CLINICAL INFORMATION: Symptoms of acute stroke COMPARISON: CT 2022 DLP: [address] scans at [facility] use at least one of these dose optimization techniques: automated exposure control; mA and/or kV adjustment per patient size (includes targeted exams where dose is matched to clinical indication); or iterative reconstruction. FINDINGS: No evidence of intracranial hemorrhage or mass effect. Ventricular system and basal cisterns are patent. Moderate small vessel changes with moderate parenchymal volume loss. No extra-axial fluid collections. No evidence of mass or mass effect. Chronic lacunar infarcts bilateral caudate. Intracranial va scular calcification. Paranasal sinuses and mastoid air cells are well aerated. .Normal visualized soft tissues. CT/CT head thrombolytic [id number] IMPRESSION: 1. No evidence of intracranial hemorrhage or mass effect. 2. Intracranial vascular calcification. 3. Tiny chronic lacunar infarcts bilateral caudate unchanged since 2022. 4. No acute intracranial findings. Notified Seymour Barron DO at 07/16/2024 3:08 PM.
--- NOTE | 2024-07-16 14:44 | ECG_ITS ---
[facility] Test Date: 2024-07-16 Pat Name: Karen Maynard Department: Room: Gender: Female Bender Machine: : 1950 Requested By: Seymour Colon Order Number: [id number] Kristina MD: Isai Iniguez M.D. Measurements Intervals [place] Rate: 93 P: 29 WA: 174 QRS: 25 QRSD: 79 T: 37 QT: 354 QTc: 442 Interpretive Statements SINUS RHYTHM WITH FREQUENT ECTOPIC PREMATURE COMPLEXES MINIMAL ST DEPRESSION [0.025+ mV ST DEPRESSION] ABNORMAL RHYTHM ECG Compared to ECG 05/06/2024 14:27:25 ST (T wave) deviation now present Ventricular premature complex(es) no longer present T-wave abnormality no longer present Electronically Signed On 07-16-2024 17:40:56 CDT by Isai Iniguez M.D. [id number]
[2024-07-16 14:48] VITALS: BMI 28.3
[2024-07-16 14:50] LABS: Glucose Point of Care 187 mg/dL (70-110)
--- NOTE | 2024-07-16 14:59 | W.ED.NEUROSD ---
HPI - Neuro Symptoms/Deficit General: Chief Complaint: Neuro Symptoms/Deficit Stated Complaint: stroke like symptoms Time Seen by Provider: 07/16/24 14:44 History of Present Illness: 73-year-old female presents emergency room complaining of right-sided facial weakness that started a few hours ago she is diabetic she has a history of hypertension she has a known history of previous stroke and TIA. She reports her last known well as noon and which was approximately 2 and half hours prior to arrival. She is awake and alert answers questions appropriately. Her who is with her states her speech still seems a little bit off to him. Associated symptoms: Deny chest pain Related Data Home Medications ?Medication ?Instructions ?Recorded ?Confirmed magnesium oxide 400 mg (241.3 mg 400 mg PO DAILY 05/06/24 07/16/24 magnesium) tablet metformin 500 mg tablet,extended 500 mg PO DAILY 07/16/24 07/16/24 release 24 hr Previous Rx's ?Medication ?Instructions ?Recorded aspirin 81 mg tablet,delayed 81 mg PO .QHS 90 days #90 tabs 07/25/22 release (Adult Low Dose Aspirin) cyanocobalamin (vitamin B-12) 1,000 mcg PO DAILY #90 caps 10/08/22 1,000 mcg capsule diphenhydramine HCl 25 mg capsule 25 mg PO TID PRN allergy symptoms 12/21/22 (Benadryl) #90 caps epinephrine 0.3 mg/0.3 mL 0.3 mg (0.3 mL) IM Q4H PRN 12/21/22 injection, auto-injector (EpiPen anaphylaxis #2 ea 2-Roman) albuterol sulfate 90 mcg/actuation 1 inh inhalation QID PRN shortness 05/07/24 aerosol inhaler (Ventolin HFA) of breath or wheezing #8.5 grams amlodipine 5 mg tablet 5 mg PO DAILY 90 days #90 tabs 05/07/24 atorvastatin 10 mg tablet 10 mg PO .QHS 90 days #90 tabs 05/07/24 buspirone 10 mg tablet 10 mg PO TID 90 days #270 tabs 05/07/24 loratadine 10 mg tablet (Claritin) 10 mg PO DAILY 90 days #90 tabs 05/07/24 raloxifene 60 mg tablet (Evista) 60 mg PO DAILY 90 days #90 tabs 05/07/24 tiotropium 2.5 mcg-olodaterol 2.5 2 puff inhalation DAILY #4 grams 05/07/24 mcg/actuation mist for inhalation (Stiolto Respimat) trazodone 100 mg tablet 100 mg PO .QHS #90 tabs 05/07/24 atorvastatin 40 mg tablet (Lipitor) 40 mg PO DAILY #30 tabs 07/16/24 clopidogrel 75 mg tablet 75 mg PO DAILY #30 tabs 07/16/24 Allergies Allergy/AdvReac Type Severity Reaction Status Date / Time tetanus toxoid, adsorbed Allergy Unknown Verified 05/06/24 14:29 Review of Systems Const: Denies: fever(s) or chills Card: Denies: chest pain Resp: Denies: dyspnea GI: Denies: abdominal pain : Denies: dysuria, urinary frequency or urinary urgency Musc: Denies: neck pain or back pain Skin/Breast: Denies: rash PFSH ED PFSH: Medical History (Updated 07/16/24 @ 16:39 by Seymour Barron DO) TIA (transient ischemic attack) CAD in [place] artery Enteritis Hypophosphatemia Diarrhea Hypomagnesemia Hypokalemia Hyponatremia Syncope Stroke-like symptom Chronic UTI Encounter for smoking cessation counseling Advanced care planning/counseling discussion Pulmonary nodule 1 cm or greater in diameter Current every day smoker Screening for lung cancer Colon cancer screening Osteoporosis screening Breast cancer screening by mammogram Postmenopausal OA (osteoarthritis) Depression Anxiety Hypertension Diabetes Surgical History H/O: hysterectomy Family History Family/Other No significant medical problems Social History Smoking and tobacco/nicotine status: former use of tobacco/nicotine (2022) Quit status (tobacco/nicotine): has quit using Year quit tobacco: 2022 Former quit date comment: 1ppd X 50 years NIH stroke score NIHSS: Level Of Consciousness - 1a: 0 Level Of Consciousness Questions - 1b: Both Correct Level Of Consciousness Commands - 1c: Both Correct Best Gaze - 2: Normal Visual Wynn - 3: No Visual Loss Facial Palsy - 4: Normal Motor Arm Right - 5: No Drift Motor Arm Left - 5: No Drift Motor Leg Right - 6: No Drift Motor Leg Left - 6: No Drift Limb Ataxia - 7: Absent Sensory - 8: Mild To Moderate Loss Best Language - 9: No Aphasia Dysarthia - 10: Mild/Moderate Dysarthia Extinction And Inattention - 11: 0 Score: Total Score: 2 Physical Exam Const: GENERAL APPEARANCE: cooperative ORIENTATION/CONSCIOUSNESS: Yes awake, Yes oriented to person, Yes oriented to place and Yes oriented to time HENMT: COMMON NORMALS: normocephalic, atraumatic and hearing grossly normal bilaterally HEAD & SCALP: normocephalic and atraumatic Resp: COMMON NORMALS: normal respiratory effort, No retractions, No use of accessory muscles and clear to auscultation bilaterally AUSCULTATION: clear to auscultation bilaterally Cardio: COMMON NORMALS: regular rate, regular rhythm and No murmurs present (Cardio) RATE: regular rate RHYTHM: regular rhythm GI: COMMON NORMALS: Soft to palpation and No hepatosplenomegaly present AUSCULTATION: Yes normoactive bowel sounds PALPATION: Yes Soft to palpation, No Tenderness to palpation present (GI), No Guarding due to palpation present (GI) and Yes No hepatosplenomegaly present Extremity: COMMON NORMALS: normal to inspection, capillary refill normal, no clubbing, cyanosis or edema, no calf tenderness and no pedal edema Neuro: SENSORIUM/ORIENTATION: Yes oriented to person, Yes oriented to place and Yes oriented to time Skin: COMMON NORMALS: no rashes or lesions noted GENERAL SKIN EXAM: no rashes or lesions noted Course Vital Signs: Vital signs: Vital Signs Temperature 98.0 F 07/16/24 15:06 Pulse Rate 88 07/16/24 17:00 Respiratory Rate 15 07/16/24 15:45 Blood Pressure 113/57 07/16/24 17:00 Pulse Oximetry 96 07/16/24 17:00 Oxygen Delivery Me thod Room Air 07/16/24 15:06 MDM - Neuro Symptoms/Deficit Medical Decision Making Patient has a stroke score of 2. She is currently on atorvastatin. She is not on antiplatelet therapy we will start her on aspirin and clopidogrel. Increased her atorvastatin to 40 mg daily. Discussed with the patient she should have further follow-up follow-up with her primary care doctor she will need to have echocardiogram ultrasound of her carotid arteries. She should see neurology they may wish to have further advanced imaging. She has no symptoms at the time of discharge. Patient feels she is back at her baseline. Lab Data 07/16/24 15:00 07/16/24 15:[address] 07/16/24 14:44 IMPRESSION: 1. No evidence of intracranial hemorrhage or mass effect. 2. Intracranial vascular calcification. 3. Tiny chronic lacunar infarcts bilateral caudate unchanged since 2022. 4. No acute intracranial findings. Notified Seymour Barron DO at 07/16/2024 3:08 PM. Laboratory Results WBC 8.31 10^3/uL (3.29-11.43) 07/16/24 15:00 RBC 4.19 10^6/uL (3.85-5.65) 07/16/24 15:00 Hgb 12.80 g/dL (11.27-16.99) 07/16/24 15:00 Hct 38.3 % (36-47) 07/16/24 15:00 MCV 91.4 fl (85-98) 07/16/24 15:00 MCH 30.5 pg (27-33) 07/16/24 15:00 MCHC 33.4 g/dL (30-55) 07/16/24 15:00 RDW 13.2 % (12.1-15.1) 07/16/24 15:00 Plt Count 281 10^3/cmm (157-399) 07/16/24 15:00 MPV 9.0 fL (7.4-10.4) 07/16/24 15:00 Neut % (Auto) 58.1 % 07/16/24 15:00 Lymph % (Auto) 31.2 % 07/16/24 15:00 Centre % (Auto) 8.4 % 07/16/24 15:00 Eos % (Auto) 1.3 % 07/16/24 15:00 Baso % (Auto) 0.8 % 07/16/24 15:00 Neut # (Auto) 4.82 10^3/uL (1.8-7.7) 07/16/24 15:00 Lymph # (Auto) 2.6 10^3/uL (0.8-4.8) 07/16/24 15:00 Centre # (Auto) 0.7 10^3/uL (0.2-0.9) 07/16/24 15:00 Eos # (Auto) 0.1 10^3/uL (0.0-0.8) 07/16/24 15:00 Baso # (Auto) 0.1 10^3/uL (0.0-0.1) 07/16/24 15:00 Nucleated RBC % (auto) 0 % 07/16/24 15:00 Nucleated RBCs # 0.0 /100WBC 07/16/24 15:00 PT 13.10 SECONDS (12.1-14.9) 07/16/24 15:00 INR 0.92 (0.8-1.2) 07/16/24 15:00 APTT 28.3 SECONDS (23.9-36.7) 07/16/24 15:00 Sodium 130 mmol/L (136-145) L 07/16/24 15:26 Potassium 3.7 mmol/L (3.5-5.1) 07/16/24 15:26 Chloride 96 mmol/L (98-107) L 07/16/24 15:26 Carbon Dioxide 21 mmol/L (22-29) L 07/16/24 15:26 Anion Gap 16.7 (5-19) 07/16/24 15:26 BUN 7 mg/dL (8-23) L 07/16/24 15:26 Creatinine 0.6 mg/dL (0.5-0.9) 07/16/24 15:26 GFR Calculation Not Reportable 07/16/24 15:26 Glucose 146 mg/dL (65-115) H 07/16/24 15:26 POC Glucose 187 mg/dL (70-110) H 07/16/24 14:46 Calculated Osmolality 271 mOsm/kg (285-295) L 07/16/24 15:26 Calcium 8.8 mg/dL (8.5-10.5) 07/16/24 15:26 Total Bilirubin 0.4 mg/dL (0.15-1.2) 07/16/24 15:26 AST 38 U/L (0-32) H 07/16/24 15:26 ALT 28 U/L (0-33) 07/16/24 15:26 Alkaline Phosphatase 70 U/L (35-105) 07/16/24 15:26 Total Protein 7.1 g/dL (6.6-8.7) 07/16/24 15: Albumin 4.0 g/dL (3.5-5.2) 07/16/24 15:26 Globulin 3.1 g/dL (1.3-4.6) 07/16/24 15:26 Urine Color Yellow (Yellow) 07/16/24 16:02 Urine Appearance Clear (CLEAR) 07/16/24 16:02 Urine pH 6.0 (5-7) 07/16/24 16:02 Ur Specific [place] 1.006 (1.005-1.030) 07/16/24 16:02 Urine Protein Negative (Negative) 07/16/24 16:02 Urine Glucose (UA) Negative (Normal) 07/16/24 16:02 Urine Ketones Negative (Negative) 07/16/24 16:02 Urine Blood Negative (Negative) 07/16/24 16:02 Urine Nitrate Negative (Negative) 07/16/24 16:02 Urine Bilirubin Negative (Negative) 07/16/24 16:02 Urine Urobilinogen 0.2 mg/dL (Negative) 07/16/24 16:02 Ur Leukocyte Esterase Negative (Negative) 07/16/24 16:02 Urine RBC 0-2 /hpf (0-2) 07/16/24 16:02 Urine WBC 0-5 /hpf (0-5) 07/16/24 16:02 Ur Squamous Epith Cells 0-5 /hpf (0-5) 07/16/24 16:02 Amorphous Sediment Not Reportable 07/16/24 16:02 Urine Bacteria None seen /hpf (NONE) 07/16/24 16:02 Hyaline Casts 1.65 /lpf 07/16/24 16:02 Urine Opiates Screen Negative ng/mL (Negative) 07/16/24 16:02 Ur Barbiturates Screen Negative ng/mL (Negative) 07/16/24 16:02 Ur Phencyclidine Scrn Negative ng/mL (Negative) 07/16/24 16:02 Ur Amphetamines Screen Negative ng/mL (Negative) 07/16/24 16:02 U Benzodiazepines Scrn Negative ng/mL (Negative) 07/16/24 16:02 Urine Cocaine Screen Negative ng/mL (Negative) 07/16/24 16:02 U Marijuana (THC) Screen Negative ng/mL (Negative) 07/16/24 16:02 All radiology interpretation(s) finalized by discharge Discharge Plan Discharge Patient Disposition: Home Clinical Impression: TIA (transient ischemic attack) Condition: Stable Prescriptions: New clopidogrel 75 mg tablet 75 mg PO DAILY Qty: 30 0RF atorvastatin [Lipitor] 40 mg tablet 40 mg PO DAILY Qty: 30 0RF No Action diphenhydramine HCl [Benadryl] 25 mg capsule 25 mg PO TID PRN (Reason: allergy symptoms) Qty: 90 0RF epinephrine [EpiPen 2-Roman] 0.3 mg/0.3 mL auto-injector 0.3 mg IM Q4H PRN (Reason: anaphylaxis) Qty: 2 0RF magnesium oxide 400 mg (241.3 mg magnesium) tablet 400 mg PO DAILY aspirin [Adult Low Dose Aspirin] 81 mg tablet,delayed release (DR/EC) 81 mg PO .QHS 90 Days Qty: 90 1RF trazodone 100 mg tablet 100 mg PO .QHS Qty: 90 1RF Stiolto Respimat 2.5-2.5 mcg/actuation mist 2 puff inhalation DAILY Qty: 4 6RF raloxifene [Evista] 60 mg tablet 60 mg PO DAILY 90 Days Qty: 90 1RF loratadine [Claritin] 10 mg tablet 10 mg PO DAILY 90 Days Qty: 90 1RF buspirone 10 mg tablet 10 mg PO TID 90 Days Qty: 270 1RF atorvastatin 10 mg tablet 10 mg PO .QHS 90 Days Qty: 90 1RF amlodipine 5 mg tablet 5 mg PO DAILY 90 Days Qty: 90 1RF albuterol sulfate [Ventolin HFA] 90 mcg/actuation HFA aerosol inhaler 1 inh inhalation QID PRN (Reason: shortness of breath or wheezing) Qty: 8.5 3RF metformin 500 mg tablet extended release 24 hr 500 mg PO DAILY cyanocobalamin (vitamin B-12) 1,000 mcg capsule 1,000 mcg PO DAILY Qty: 90 3RF Discharge Orders: Discharge ED (Routine); Ordered 07/16/24 Ordered By: Seymour Barron Referrals: Gabi Frankel FNP-C [Primary Care Provider, Family Practice] Discharge Diet: Usual diet Discharge Activity: Increase activity as tolerated Patient Instructions: Opioid Safety, Pain Management Activity Restrictions/Additional Instructions: Thank you for choosing [facility] for your healthcare needs today. It is very important that you follow up as instructed or that you return to the Emergency Department should you have concerns or if your condition changes or worsens in any way. You were seen in the emergency room the concern for possible TIA or stroke. Your symptoms had largely resolved we discussed with the on-call neurologist he recommends you continue your aspirin and clopidogrel and start atorvastatin 40 mg daily. Case management will make arrangements for you to have a follow-up echocardiogram and ultrasound of your carotid arteries and finally follow-up with neurology. Print Language: Icelandic Coding Level of Care Code ED Oncology Consultant for Yanelis Rutledge
[2024-07-16 15:06] VITALS: BP 144/63; PULSE 101; RESP 19; TEMP 36.7; O2SAT 99
[2024-07-16 15:08] LABS: Basophils # 0.1 10^3/uL (0.0-0.1); Basophils % 0.8 %; Eosinophils # 0.1 10^3/uL (0.0-0.8); Eosinophils % 1.3 %; Hematocrit 38.3 % (36-47); Lymphocytes # 2.6 10^3/uL (0.8-4.8); Lymphocytes % 31.2 %; Mean Corpuscular HGB Conc 33.4 g/dL (30-55); Mean Corpuscular Hemoglobin 30.5 pg (27-33); Mean Corpuscular Volume 91.4 fl (85-98); Monocytes # 0.7 10^3/uL (0.2-0.9); Monocytes % 8.4 %; Neutrophils # 4.82 10^3/uL (1.8-7.7); Neutrophils % 58.1 %; Nucleated Red Blood Cells % 0 %; Platelet Count 281 10^3/cmm (157-399); Red Blood Count 4.19 10^6/uL (3.85-5.65); Red Cell Distribution Width 13.2 % (12.1-15.1); White Blood Count 8.31 10^3/uL (3.29-11.43)
[2024-07-16 15:15] VITALS: BP 144/63; PULSE 99; RESP 24; O2SAT 99
[2024-07-16 15:20] LABS: INR 0.92 (0.8-1.2)
[2024-07-16 15:21] LABS: Partial Thromboplastin Time 28.3 SECONDS (23.9-36.7)
--- NOTE | 2024-07-16 15:23 | PM.CONSULT ---
Providers/Reason For Consult Consulting Physician/Specialty*: Will La MD neurology and epilepsy Reason for Consult*: Acute care/code stroke emergency department room #13 Primary Care Provider: FIDELIA Gutierrez History of Present Illness History of Present Illness Karen Maynard is a 73 year old female who reports a history of stroke approximately 2 years ago requiring hospitalization. Patient could not remember if her left or right side was affected or what symptoms she was experiencing at that time. The patient stated that on 07/16/2024 around 12 PM she began to experience acute onset of her eyes crossing followed by right facial numbness as well as right arm and right leg numbness and right arm weakness with questionable slurred speech. Patient presented to the [facility] emergency department. Code stroke was initiated at 2:46 PM on 07/16/2024 in the emergency department patient reports that her symptoms have improved. Current neurological NIH stroke score = 1 (secondary to decreased sensation involving the right face in a V1 through V3 distribution and right arm and right leg). Point of contact glucose Accu-Chek = [address] scan 07/16/2024 revealed no acute findings. There was report of Tiny chronic lacunar infarcts bilateral caudate unchanged since 2022. The patient denied visual loss, chest pain, shortness of breath, or palpitations. Drug allergies: Tetanus toxoid type reaction unknown Current medications: Aspirin 81 mg p.o. every morning Albuterol sulfate 90 mcg per accusation 1 inhalation 4 times a day as needed for shortness of breath Norvasc 5 mg p.o. daily Lipitor 10 mg p.o. daily BuSpar 10 mg p.o. 3 times daily B12 1000 mcg p.o. daily Benadryl 25 mg p.o. 3 times daily as needed for allergy symptoms Epinephrine 0.3 mg subcutaneously as needed anaphylaxis Claritin 10 mg p.o. daily Magnesium oxide 400 mg p.o. daily Metformin 500 mg p.o. daily Raloxifene 60 mg p.o. daily Trazodone 100 mg p.o. nightly Past medical history: Cerebral infarction 2022 Coronary artery disease Mixed hyperlipidemia Chronic low back pain Chronic paresthesias involving the right upper extremity after a fall Emphysema Lung nodule Insomnia Panic attacks Osteoporosis TIA Hypertriglyceridemia Habits: The patient stated that she smoked but quit 2 years ago. She denied alcohol use other drug use Family history: Negative for stroke Social history: Patient lives with her Review of Systems General: Reports: 10 or more systems reviewed and unremarkable except in HPI and below Medications/Allergies Home Medications ?Medication ?Instructions ?Recorded ?Confirmed ?Last Taken ?Type aspirin 81 mg tablet,delayed 81 mg PO .QHS 90 days #90 tabs 07/25/22 07/16/24 07/15/24 Rx release (Adult Low Dose Aspirin) cyanocobalamin (vitamin B-12) 1,000 mcg PO DAILY #90 caps 10/08/22 07/16/24 07/16/24 Rx 1,000 mcg capsule diphenhydramine HCl 25 mg capsule 25 mg PO TID PRN allergy symptoms 12/21/22 07/16/24 Unknown Rx (Benadryl) #90 caps epinephrine 0.3 mg/0.3 mL 0.3 mg (0.3 mL) IM Q4H PRN 12/21/22 07/16/24 Unknown Rx injection, auto-injector (EpiPen anaphylaxis #2 ea 2-Roman) magnesium oxide 400 mg (241.3 mg 400 mg PO DAILY 05/06/24 07/16/24 07/16/24 History magnesium) tablet albuterol sulfate 90 mcg/actuation 1 inh inhalation QID PRN shortness 05/07/24 07/16/24 Unknown Rx aerosol inhaler (Ventolin HFA) of breath or wheezing #8.5 grams amlodipine 5 mg tablet 5 mg PO DAILY 90 days #90 tabs 05/07/24 07/16/24 07/16/24 Rx atorvastatin 10 mg tablet 10 mg PO .QHS 90 days #90 tabs 05/07/24 07/16/24 07/15/24 Rx buspirone 10 mg tablet 10 mg PO TID 90 days #270 tabs 05/07/24 07/16/24 07/16/24 Rx loratadine 10 mg tablet (Claritin) 10 mg PO DAILY 90 days #90 tabs 05/07/24 07/16/24 07/16/24 Rx raloxifene 60 mg tablet (Evista) 60 mg PO DAILY 90 days #90 tabs 05/07/24 07/16/24 07/16/24 Rx tiotropium 2.5 mcg-olodaterol 2.5 2 puff inhalation DAILY #4 grams 05/07/24 07/16/24 07/16/24 Rx mcg/actuation mist for inhalation (Stiolto Respimat) trazodone 100 mg tablet 100 mg PO .QHS #90 tabs 05/07/24 07/16/24 07/15/24 Rx metformin 500 mg tablet,extended 500 mg PO DAILY 07/16/24 07/16/24 07/16/24 History release 24 hr Allergies Allergy/AdvReac Type Severity Reaction Status Date / Time tetanus toxoid, adsorbed Allergy Unknown Verified 05/06/24 14:29 PFSH Acute PFSH: Medical History (Updated 07/16/24 @ 15:34 by Will La MD) TIA (transient ischemic attack) CAD in [place] artery Enteritis Hypophosphatemia Diarrhea Hypomagnesemia Hypokalemia Hyponatremia Syncope Stroke-like symptom Chronic UTI Encounter for smoking cessation counseling Advanced care planning/counseling discussion Pulmonary nodule 1 cm or greater in diameter Current every day smoker Screening for lung cancer Colon cancer screening Osteoporosis screening Breast cancer screening by mammogram Postmenopausal OA (osteoarthritis) Depression Anxiety Hypertension Diabetes Surgical History H/O: hysterectomy Family History Family/Other No significant medical problems Social History Smoking and tobacco/nicotine status: former use of tobacco/nicotine (2022) Quit status (tobacco/nicotine): has quit using Year quit tobacco: 2022 Former quit date comment: 1ppd X 50 years Vitals/I&O/Wt Last Vital Signs Temp 98.0 F 07/16/24 15:06 Pulse 101 H 07/16/24 15:06 Resp 19 H 07/16/24 15:06 BP 144/63 07/16/24 15:06 Pulse Ox 99 07/16/24 15:06 O2 Del Method Room Air 07/16/24 15:06 Weight last 48 hrs Weight 160 lb Physical Exam Narrative: Current neurological NIH stroke score = 1 (secondary to decreased sensation involving the right face in a V1 through V3 distribution and right arm and right leg). Point of contact glucose Accu-Chek = [address] scan 07/16/2024 revealed no acute findings. There was report of Tiny chronic lacunar infarcts bilateral caudate unchanged since 2022. The patient is alert and oriented x 3. Speech fluent. Head normocephalic. Neck supple. Cranial nerves II through XII intact except for reports of decreased sensation over the right face in the V1 through V3 distribution. Visual goldman full via confrontation. Extraocular movements intact. There were no nystagmus. Pupils 4 mm round reactive to light and accommodation. Motor testing 5/5 bilaterally. [id number] and [id number] maneuver revealed no ataxia. There was no drift. Deep tendon reflex revealed plantar responses bilaterally. There was no clonus. Sensory examination: Patient reported decreased sensation in the right face in the V1 through V3 distribution, chronic decrease sensation in the right arm following any injury, and decreased sensation in the right leg which the patient reports is acute but improving. There was no extinction on double sensory stimulation. Throat clear. Lungs clear. Heart regular rhythm and rate. Extremities were negative for cyanosis. Data 07/16/24 15:00 A&P Assessment and plan (1) TIA (transient ischemic attack): Impression: 1. Transient ischemic attack manifested as right sided numbness (face arm and leg, diplopia with questionable dysarthria and right arm weakness) symptoms resolved in the emergency department with residual numbness involving the right face and right arm and right leg with NIH stroke score = 1. In view of the patient's improving symptoms and NIH stroke score =1, the patient was not a candidate for intravenous thrombolytics and no intravenous thrombolytics were administered. Plan: 1. Increase aspirin to 325 mg p.o. every morning with food for stroke prophylaxis 2. Recommend increasing Lipitor to 20 mg p.o. nightly per NIH stroke protocol 3. Recommend obtaining repeat carotid duplex study and 2D echocardiogram on outpatient basis 4. Please schedule follow-up in the [facility] neurology clinic after the above studies have been completed PDMP PDMP Reviewed: Not Reviewed Consult Attestations Medical Necessity Statement: The patient was evaluated by neurology for acute care/code stroke 07/16/2024 emergency department room #13 Coding Level of Care Code 78673 Diagnoses TIA (transient ischemic attack) G45.9
[2024-07-16 15:30] VITALS: BP 144/63; PULSE 84; RESP 19; O2SAT 88
[2024-07-16 15:45] VITALS: BP 143/101; PULSE 84; RESP 15; O2SAT 95
[2024-07-16 15:58] LABS: Alanine Aminotransferase 28 U/L (0-33); Alkaline Phosphatase 70 U/L (35-105); Anion Gap 16.7 (5-19); Aspartate Amino Transferase 38 U/L (0-32); Blood Urea Nitrogen 7 mg/dL (8-23); Calcium 8.8 mg/dL (8.5-10.5); Carbon Dioxide 21 mmol/L (22-29); Chloride 96 mmol/L (98-107); Creatinine Clr Calc Pharmacy 61.5723; Globulin 3.1 g/dL (1.3-4.6); Glucose 146 mg/dL (65-115); Osmolality Calculated 271 mOsm/kg (285-295); Potassium 3.7 mmol/L (3.5-5.1); Sodium 130 mmol/L (136-145); Total Bilirubin 0.4 mg/dL (0.15-1.2); Total Protein 7.1 g/dL (6.6-8.7)
[2024-07-16 16:00] VITALS: BP 143/101; PULSE 88; O2SAT 99
[2024-07-16 16:15] LABS: Bilirubin Urine Negative (Negative); Blood Urine Negative (Negative); Glucose Urine UA Negative (Normal); Ketones Urine Negative (Negative); Leukocyte Esterase Urine Negative (Negative); Nitrate Urine Negative (Negative); Protein Urine Negative (Negative); Specific Gravity, Urine 1.006 (1.005-1.030); Urine Appearance Clear (CLEAR); Urine Color Yellow (Yellow); Urobilinogen Urine 0.2 mg/dL (Negative)
[2024-07-16 16:17] LABS: Add Urine Microscopic? YES; Bacteria Urine None Seen /hpf; Hyaline Casts Urine 1.65 /lpf; RBC Urine 0-2 /hpf (0-2); Squamous Epithelial Cell Urine 0-5 /hpf (0-5); WBC Urine 0-5 /hpf (0-5)
[2024-07-16 16:28] LABS: Amphetamines Screen Urine Negative (Negative); Barbiturates Screen Urine Negative (Negative); Benzodiazepines Screen Urine Negative (Negative); Cocaine Screen Urine Negative (Negative); Opiate Screen Urine Negative (Negative); PCP Screen Urine Negative (Negative); THC Screen Urine Negative (Negative)
[2024-07-16 17:00] VITALS: BP 113/57; PULSE 88; O2SAT 96
== END 2024-07-16 17:02 | disposition home or self-care (01) ==
PROVIDERS: Emergency Provider Family Medicine; PCP Nurse Practitioner Family
DX: G45.9 Transient cerebral ischemic attack, unspecified (principal); Z79.82 Long term (current) use of aspirin; Z79.84 Long term (current) use of oral hypoglycemic drugs; Z87.891 Personal history of nicotine dependence; I25.10 Atherosclerotic heart disease of native coronary artery without angina pectoris; E11.9 Type 2 diabetes mellitus without complications; I10 Essential (primary) hypertension
CPT/HCPCS: 36415; 36416; 70450; 80053; 80306; 81001; 82962; 85025; 85610; 85730; 93005; 99285

== ENCOUNTER → 2024-08-05 14:38 | Outpatient (BNVA) | payer MEDICARE, SELFPAY | PROVIDERS: PCP Nurse Practitioner Family; Visit Provider Nurse Practitioner Family | DX: R39.9 Unspecified symptoms and signs involving the genitourinary system (principal); E11.9 Type 2 diabetes mellitus without complications; E78.2 Mixed hyperlipidemia; G45.9 Transient cerebral ischemic attack, unspecified; F32.A Depression, unspecified | CPT/HCPCS: 80053; 80061; 81000; 83036; 84443; 85025 ==

== ENCOUNTER 2024-09-05 10:11 | Outpatient (CLI) | payer MEDICARE, SELFPAY ==
--- NOTE | 2024-09-05 09:45 | USCV_ITS ---
Karen Maynard Age: 73 Gender: F : 1950 Exam Date: 09/05/2024 11:07 Ordering Phys: Gabi FrankelP-Kiko Technologist: FAMILIA [place] [facility] [place]: stenosis Risk Factors: Previous Vascular Surgery: Right Brachial BP: / Left Brachial BP: / Right Left Velocity (cm/s) Spectral Plaque Velocity (cm/s) Spectral Plaque Syst/Diast Broadening Syst/Diast Broadening 70.30/ 16.20 Prox CCA 64.20 / 16.90 78.70/ 20.60 Mid CCA 59.30 / 13.80 63.00/ 17.90 Distal CCA 57.20 / 15.00 52.80/ 14.10 Prox ICA 42.10 / 8.90 54.70/ 15.00 Mid ICA 52.10 / 13.00 55.50/ 18.80 Distal ICA 69.20 / 22.00 87.50 ECA 72.20 0.80 ICA/CCA 0.70 Antegrade Vertebral Antegrade 27.10/ 6.50 cm/s 20.80/ 7.30 cm/s Bi Subclavian Tri 47.20 83.10 FINDINGS Comparison:. 12/21/21 No significant elevation of systolic or diastolic velocities. Waveforms are normal. Mild bilateral scattered calcified plaque and intimal thickening throughout the common carotid arteries and extending through the bifurcation. CONCLUSIONS Bilateral ICA stenosis less than 50%. Mild progression of calcified plaque since the prior exam. Dr. Thi Morrissey DO (Electronically Signed) Final Date: 05 September 2024 12:47 S
== END 2024-09-05 10:12 | disposition home or self-care (01) ==
PROVIDERS: PCP Nurse Practitioner Family; Visit Provider Nurse Practitioner Family
DX: I65.23 Occlusion and stenosis of bilateral carotid arteries (principal)
CPT/HCPCS: 93880

== ENCOUNTER 2024-09-17 14:00 | Outpatient (CLI) | payer MEDICARE, SELFPAY ==
--- NOTE | 2024-09-17 14:15 | USCV_ITS ---
Karen Maynard Age: 73 Gender: F : 1950 Exam Date: 09/17/2024 14:28 Ordering Phys: Gabi Frankel DATA LEAD-Kiko Technologist: Exam Location: [facility] – [place] Indication: cp murmur BP: 130 / 80 HR: 70 Rhythm: Sinus Technical Quality: Adequate MEASUREMENTS (Male / Female) Normal Values 2D ECHO LV Diastolic Diameter PLAX 3.6 cm 4.2 - 5.9 / 3.9 - 5.3 cm IVS Diastolic Thickness 1.5 cm 0.6 - 1.0 / 0.6 - 0.9 cm IVS Systolic Thickness 1.7 cm LVPW Diastolic Thickness 1.2 cm 0.6 - 1.0 / 0.6 - 0.9 cm LVPW Systolic Thickness 1.6 cm LVOT Diameter 2.3 cm LV Ejection Fraction 2D Teich 55.8 % LV Ejection Fraction MOD 4C 64.4 % LV Ejection Fraction MOD 2C 59.8 % LV Ejection Fraction 2C AL 59.9 % LA Diameter 3.2 cm RA Systolic Volume 4C AL 22.5 ml RA Systolic Volume 4C MOD 21.9 ml Aorta at Sinotubular Diameter 2.4 cm IVC Diameter 2.0 cm M-MODE LA Ao Ratio MM 1.1 AV Cusp Separation MM 1.4 cm DOPPLER AV Peak Velocity 236.0 cm/s LVOT Peak Velocity 97.0 cm/s AV Area Cont Eq vti 2.0 cm squared AV Area Cont Eq pk 1.7 cm squared MV Area PHT 6.0 cm squared Mitral E to A Ratio 0.9 TR Peak Velocity 208.0 cm/s TR Peak Gradient 17.3 mmHg TV Peak E Velocity 74.0 cm/s PV Peak Velocity 101.0 cm/s FINDINGS Left Ventricle Left ventricle is normal in size. LV systolic function is normal with EF 55-60%. No regional wall motion abnormalities are seen. Grade 1 diastolic dysfunction. Right Ventricle Normal in size and function Right Atrium Normal in size Left Atrium Normal in size Mitral Valve Structurally normal mitral valve. Mild mitral regurgitation Aortic Valve Aortic valve is thickened. Mild aortic stenosis with aortic valve area of 2 cm squared and mean gradient of 10 mmHg. Mild to moderate aortic regurgitation Tricuspid Valve Insufficient TR jet to calculate RVSP. Pulmonic Valve Not well visualized Pericardium Normal Aorta Normal in size IVC Appears to be normal CONCLUSIONS LV systolic function is normal with EF of 55-60%. Grade 1 diastolic dysfunction. Mild mitral regurgitation. Mild aortic stenosis. Mild to moderate aortic regurgitation. Marck Hussein MD (Electronically Signed) Final Date: 24 September 2024 10:39 S
== END 2024-09-17 14:01 | disposition home or self-care (01) ==
LOC: RAD 14:03
PROVIDERS: PCP Nurse Practitioner Family; Visit Provider Nurse Practitioner Family
DX: E78.2 Mixed hyperlipidemia (principal); I10 Essential (primary) hypertension; I25.10 Atherosclerotic heart disease of native coronary artery without angina pectoris; G45.9 Transient cerebral ischemic attack, unspecified; R93.1 Abnormal findings on diagnostic imaging of heart and coronary circulation; I34.0 Nonrheumatic mitral (valve) insufficiency; I35.8 Other nonrheumatic aortic valve disorders; I35.0 Nonrheumatic aortic (valve) stenosis; I35.1 Nonrheumatic aortic (valve) insufficiency
CPT/HCPCS: 93306

== ENCOUNTER → 2024-09-25 07:22 | Outpatient (BNVA) | payer MEDICARE, SELFPAY | PROVIDERS: PCP Nurse Practitioner Family; Referring Provider Nurse Practitioner Family; Visit Provider Psychiatry & Neurology Neurology | DX: G45.9 Transient cerebral ischemic attack, unspecified (principal); Z79.899 Other long term (current) drug therapy; I35.0 Nonrheumatic aortic (valve) stenosis; I10 Essential (primary) hypertension; R20.0 Anesthesia of skin; R25.2 Cramp and spasm | CPT/HCPCS: 36415; 80076; 82085; 82306; 82550; 82607; 82746; 83735; 83921; 84439; 84443; 84481; 85025; 99212 ==

== ENCOUNTER 2024-10-08 09:16 | Outpatient (CLI) | payer MEDICARE, SELFPAY ==
--- NOTE | 2024-10-08 09:30 | MR_ITS ---
WS: [id number] MRI BRAIN WITH AND WITHOUT CONTRAST HISTORY: G45.9 - Transient cerebral ischemic attack, unspecified COMPARISON: CT head 07/16/2024 TECHNIQUE: Multiplanar imaging performed through the brain with MultiHance 15 ml's IV. No acute infarct. Diffusion imaging is normal. Extensive confluent and patchy T2 and FLAIR signal hyperintensities throughout the supratentorial white matter. Tiny lacunar infarcts in the LEFT caudate. No large territory infarct. Mild cerebellar atrophy. No hemorrhage. Mild hippocampal atrophy. Ventricles and extra-axial spaces are normal. Clivus and pituitary gland are normal. Visualized posterior fossa and brainstem are also normal. Postcontrast images are negative for masses or vascular malformations. Dural venous sinuses are normal. Paranasal sinuses: Well aerated with no significant disease. Mastoid air cells: Normal. Calvarium and scalp: Normal. MR/MR head wo/w con [id number] IMPRESSION: 1. No acute infarct. No diffusion abnormality. 2. Extensive T2 signal abnormality in the supratentorial white matter. This is probably related to small vessel disease. This can also be seen with smoking h istory diabetes and hypertension. 3. Tiny lacunar infarcts LEFT caudate. 4. Mild hippocampal and cerebellar atrophy. 5. No mass.
[2024-10-08] MEDS: gadobenate dimeglumine 20 mL vial 15 ML IV (10:09)
== END 2024-10-08 09:17 | disposition home or self-care (01) ==
PROVIDERS: PCP Nurse Practitioner Family; Visit Provider Psychiatry & Neurology Neurology
DX: G45.9 Transient cerebral ischemic attack, unspecified (principal)
CPT/HCPCS: 70553

== ENCOUNTER → 2024-11-13 09:53 | Outpatient (BNVA) | payer MEDICARE, SELFPAY | PROVIDERS: PCP Nurse Practitioner Family; Visit Provider Nurse Practitioner Family | DX: E11.9 Type 2 diabetes mellitus without complications (principal); I10 Essential (primary) hypertension; E78.2 Mixed hyperlipidemia; F32.A Depression, unspecified | CPT/HCPCS: 80053; 80061; 83036; 84443; 85025 ==

== ENCOUNTER → 2024-11-17 08:48 | Outpatient (BNVA) | payer MEDICARE, SELFPAY | PROVIDERS: PCP Nurse Practitioner Family; Visit Provider Internal Medicine | DX: E03.8 Other specified hypothyroidism (principal); R53.83 Other fatigue; L65.9 Nonscarring hair loss, unspecified; E78.1 Pure hyperglyceridemia | CPT/HCPCS: 99204 ==

== ENCOUNTER → 2025-02-03 14:34 | Outpatient (BNVA) | payer MEDICARE, SELFPAY | PROVIDERS: PCP Nurse Practitioner Family; Visit Provider Internal Medicine | DX: I35.0 Nonrheumatic aortic (valve) stenosis (principal); I25.10 Atherosclerotic heart disease of native coronary artery without angina pectoris; I10 Essential (primary) hypertension; Z87.891 Personal history of nicotine dependence | CPT/HCPCS: 80053; 80061; 82306; 83036; 84443; 85025; 99214 ==

== ENCOUNTER 2025-02-10 13:36 | Outpatient (CLI) | payer MEDICARE, SELFPAY ==
[2025-02-10 15:02] LABS: Free T4 Free Thyroxine 1.07 ng/dL (0.82-1.77); Thyroid Stimulating Hormone 2.91 uIU/mL (0.27-4.20)
== END 2025-02-10 13:37 | disposition home or self-care (01) ==
PROVIDERS: PCP Nurse Practitioner Family; Visit Provider Internal Medicine
DX: E78.1 Pure hyperglyceridemia (principal); E03.8 Other specified hypothyroidism
CPT/HCPCS: 36415; 83516; 84439; 84443; 86376; 86800

== ENCOUNTER 2025-02-13 09:56 | Outpatient (CLI) | payer MEDICARE, SELFPAY ==
--- NOTE | 2025-02-13 10:00 | USCV_ITS ---
Karen Mayanrd Age: 74 Gender: F : 1950 Exam Date: 02/13/2025 10:08 Ordering Phys: Gabi Frankel-Kiko Technologist: ANGIE [place] [facility] [place] calf swelling HISTORY: Lower extremity swelling. PROCEDURES: Venous duplex imaging was performed in bilateral lower extremities. The following venous structures were evaluated: common femoral vein, profunda vein, proximal portion of the greater saphenous vein, superficial femoral vein, and the popliteal vein. In addition, the posterior tibial and peroneal trunk were evaluated. FINDINGS: Normal 2-D Doppler and augmentation and compressibility throughout the lower extremity venous structures. Additional imaging through the proximal calf veins also reveals no thrombus. Limited evaluation of the greater saphenous vein is patent with no thrombus. CONCLUSIONS No evidence of right lower extremity DVT. No evidence of left lower extremity DVT. German Dyson MD (Electronically Signed) Final Date: 13 February 2025 10:47 S
== END 2025-02-13 09:57 | disposition home or self-care (01) ==
LOC: RAD 09:57
PROVIDERS: PCP Nurse Practitioner Family; Visit Provider Nurse Practitioner Family
DX: E11.9 Type 2 diabetes mellitus without complications (principal); M79.605 Pain in left leg; M79.604 Pain in right leg; M79.89 Other specified soft tissue disorders
CPT/HCPCS: 93970

== ENCOUNTER 2025-02-18 15:44 | Outpatient (CLI) | payer MEDICARE, SELFPAY ==
--- NOTE | 2025-02-18 15:45 | CTR_ITS ---
PROCEDURE INFORMATION: Exam: CT Chest Without Contrast; Diagnostic Exam date and time: 02/18/2025 3:55 PM Age: 74 years old Clinical indication: Condition or disease; Lung condition and disease; Pulmonary nodule, solitary; Additional info: R91.1 - solitary pulmonary nodule TECHNIQUE: Imaging protocol: Diagnostic computed tomography of the chest without contrast. Radiation optimization: All CT scans at this facility use at least one of these dose optimization techniques: automated exposure control; mA and/or kV adjustment per patient size (includes targeted exams where dose is matched to clinical indication); or iterative reconstruction. COMPARISON: CT chest wo con [id number] 04/13/2023 11:00 AM RADIATION DOSE METRICS: Total DLP (mGy-cm): 319.34 FINDINGS: Thyroid: Unchanged thyroid calcifications and small nodules. Lungs: Unchanged size of 6 mm left upper lobe nodule. Unchanged 4 mm left lower lobe calcification. Unchanged 4 mm left upper lobe nodule. Unchanged diaphragmatic pleural calcifications in the right lower lobe. No new nodules. No consolidation. Left upper lobe bulla and subpleural blebs again noted. Unchanged right middle lobe atelectasis. Pleural spaces: No effusion or pneumothorax. Heart: Unremarkable. No cardiomegaly. No pericardial effusion. Coronary arteries: Severe coronary artery disease. Lymph nodes: No lymph node enlargement. Vasculature: Aortic valve calcification noted. No aortic aneurysm. Bones/joints: Unremarkable. No acute fracture. Soft tissues: Unremarkable. CT/CT chest wo con [id number] IMPRESSION: Unchanged pulmonary nodules, measuring up to 6 mm in the left upper lobe. COMMENTS: Consistent with the [employer]'s Incidental Findings Committee white paper (J Am Nanda Radiol 2015): In patients aged 35 years and older with an incidental thyroid nodule equal to or greater than 1.[address], MRI or extrathyroidal US, further evaluation with dedicated thyroid US is recommended for patients with normal life expectancy and without comorbidities. For smaller nodules without suspicious features, no further evaluation or follow up is recommended.
== END 2025-02-18 15:45 | disposition home or self-care (01) ==
LOC: RAD 15:45
PROVIDERS: PCP Nurse Practitioner Family; Visit Provider Nurse Practitioner Family
DX: R91.1 Solitary pulmonary nodule (principal); J43.9 Emphysema, unspecified; I25.10 Atherosclerotic heart disease of native coronary artery without angina pectoris; I35.8 Other nonrheumatic aortic valve disorders
CPT/HCPCS: 71250